=== PATIENT | male | born 1990 | race Caucasian/White ===

== ENCOUNTER 2018-11-29 17:14 | Emergency (ER) | payer SELFPAY ==
--- NOTE | 2018-11-29 18:28 | RAD REPORT ---
EXAM DESCRIPTION: RAD - Hand Right 3 View - 11/29/2018 6:07 pm CLINICAL HISTORY: Persistent pain to the right middle finger following trauma 1 month earlier COMPARISON: None. FINDINGS: No fracture is identified. There is no dislocation or periosteal reaction noted. No forei gn body or other soft tissue abnormality. IMPRESSION: Negative right hand examination.
--- NOTE | 2018-11-29 18:55 | EDPHYS ---
Physician Documentation [facility] Name: Ariel Hart Age: 28 yrs Sex: Male : 1990 Arrival Date: 11/29/2018 Time: 17:17 Bed 23 Private MD: ED Physician Anastacio Shirley HPI: 11/29 18:00 This 28 yrs old Male presents to ER via Ambulatory with complaints of Finger cp Injury. 18:00 The patient or guardian reports pain. cp 18:00 The complaints affect the right middle finger. Context: resulted from a crush injury, cp while moving furniture. Onset: The symptoms/episode began/occurred 1 month(s) ago. Associated signs and symptoms: Pertinent negatives: cyanosis distally, numbness distally. Historical: - Allergies: 17:22 No Known Allergies; hb - Home Meds: 17:22 None [Active]; hb - PMHx: 17:22 None; hb - PSHx: 17:22 Ear Tubes; hb - Immunization history:: Adult Immunizations up to date. - Social history:: Smoking status: Patient uses tobacco products, smokes one-half pack cigarettes per day. - Ebola Screening: : No symptoms or risks identified at this time. ROS: 18:10 MS/extremity: Positive for pain, tenderness, of the right middle finger, Negative for cp decreased range of motion, deformity, paresthesias. 18:10 Constitutional: Negative for poor PO intake. cp 18:10 Cardiovascular: Negative for chest pain. 18:10 Abdomen/GI: Negative for abdominal pain. 18:10 Skin: Negative for rash. 18:10 All other systems are negative. Exam: 18:20 Head/Face: Normocephalic, atraumatic. cp 18:20 Constitutional: The patient appears in no acute distress, alert, awake, non-toxic, well developed, well nourished. 18:20 Musculoskeletal/extremity: Extremities: grossly normal except: noted in the middle cp phalanx of left middle finger: There is no evidence of decreased ROM, deformity, Pulses: Sensation intact. 18:20 Skin: cellulitis, is not appreciated. Vital Signs: 17:22 BP 119 / 79; Pulse 87; Resp 16; Temp 99.1(TE); Pulse Ox 100% ; Weight 68.04 kg; Height hb 5 ft. 5 in. (165.10 cm); Pain 8/10; 18:54 BP 122 / 76; Pulse 84; Resp 16 S; Pulse Ox 100% on R/A; ca1 17:22 Body Mass Index 24.96 (68.04 kg, 165.10 cm) hb MDM: 17:32 Patient medically screened. cp 18:54 Data reviewed: vital signs, nurses notes, radiologic studies, plain films, and as a cp result, I will discharge patient. 18:54 Differential diagnosis: dislocation, open fracture, closed fracture, contusion. Test cp interpretation: by ED physician or midlevel provider: plain radiologic studies. 11/29 17:49 Order name: XRAY Hand RIGHT 3 View; Complete Time: 18:33 cp 11/29 18:33 Interpretation: Report reviewed. cp Administered Medications: No medications were administered Disposition: 19:15 Chart complete. cp Disposition: 11/29/18 18:54 Discharged to Home. Impression: Pain in unspecified finger(s) - right middle. - Condition is Stable. - Discharge Instructions: Musculoskeletal Pain. - Prescriptions for Ibuprofen 800 mg Oral Tablet - take 1 tablet by ORAL route every 8 hours As needed take with food; 30 tablet. - Medication Reconciliation Form, Thank You Letter, Antibiotic Education, Prescription Opioid Use form. - Follow up: Chuy Licea MD; When: 2 - 3 days; Reason: Recheck today's complaints. Addendum: 12/02/2018 09:05 Co-signature as Attending Physician, Anastacio Shirley MD I agree with the assessment and k dr plan of care. PA/FACULTY MEMBER's history reviewed, patient interviewed, and examined. Signatures: Dispatcher [employer] EDMS Anastacio Shirley MD MD [facility] César Page PA PA cp Iris Stokes, RN RN hb Lulu Pringle RN RN ca1 Corrections: (The following items were deleted from the chart) 11/29 18:55 18:54 11/29/2018 18:54 Discharged to Home. Impression: Pain in unspecified finger(s). cp Condition is Stable. Forms are Medication Reconciliation Form, Thank You Letter, Antibiotic Education, Prescription Opioid Use. Follow up: Chuy Licea; When: 2 - 3 days; Reason: Recheck today's complaints. cp 19:04 18:55 11/29/2018 18:54 Discharged to Home. Impression: Pain in unspecified finger(s) - ca1 right middle. Condition is Stable. Discharge Instructions: Musculoskeletal Pain. Prescriptions for Ibuprofen 800 mg Oral Tablet - take 1 tablet by ORAL route every 8 hours As needed take with food; 30 tablet. and Forms are Medication Reconciliation Form, Thank You Letter, Antibiotic Education, Prescription Opioid Use. Follow up: Chuy Licea; When: 2 - 3 days; Reason: Recheck today's complaints. cp
--- NOTE | 2018-11-29 18:55 | ER ---
Nurse's Notes [facility] Name: Ariel Hart Age: 28 yrs Sex: Male : 1990 Arrival Date: 11/29/2018 Time: 17:17 Bed 23 Private MD: Diagnosis: Pain in unspecified finger(s)-right middle Presentation: 11/29 17:21 Presenting complaint: Smashed right hand while moving furniture one month ago, reports hb right middle finger pain is getting worse. Transition of care: patient was not received from another setting of care. Onset of symptoms was November 29, 2018. Risk Assessment: Do you want to hurt yourself or someone else? Patient reports no desire to harm self or others. Initial Sepsis Screen: Does the patient meet any 2 criteria? No. Patient's initial sepsis screen is negative. Does the patient have a suspected source of infection? No. Patient's initial sepsis screen is negative. Care prior to arrival: None. 17:21 Method Of Arrival: Ambulatory 17:21 Acuity: BREN 4 hb Triage Assessment: 19:04 Injury Description:. ca1 Historical: - Allergies: 17:22 No Known Allergies; hb - Home Meds: 17:22 None [Active]; hb - PMHx: 17:22 None; hb - PSHx: 17:22 Ear Tubes; hb - Immunization history:: Adult Immunizations up to date. - Social history:: Smoking status: Patient uses tobacco products, smokes one-half pack cigarettes per day. - Ebola Screening: : No symptoms or risks identified at this time. Screenin:29 Abuse screen: Denies threats or abuse. Denies injuries from another. Nutritional ca1 screening: No deficits noted. Tuberculosis screening: No symptoms or risk factors identified. Fall Risk None identified. Assessment: 17:29 General: Appears in no apparent distress. comfortable, Behavior is calm, cooperative, ca1 appropriate for age. Pain: Complains of pain in dorsal aspect of middle phalanx of right middle finger and dorsal aspect of proximal phalanx of right middle finger Pain does not radiate. Pain currently is 8 out of 10 on a pain scale. Pain began a month ago. Neuro: Level of Consciousness is awake, alert, obeys commands. Derm: Skin is intact, is healthy with good turgor, Skin is pink, warm \T\ dry. Musculoskeletal: Circulation, motion, and sensation intact. Capillary refill < 3 seconds, Range of motion: limited in PIP of right middle finger. 18:54 Reassessment: Patient appears in no apparent distress at this time. Patient and/or ca1 family updated on plan of care and expected duration. Pain level reassessed. Patient is alert, oriented x 3, equal unlabored respirations, skin warm/dry/pink. Vital Signs: 17:22 BP 119 / 79; Pulse 87; Resp 16; Temp 99.1(TE); Pulse Ox 100% ; Weight 68.04 kg; Height hb 5 ft. 5 in. (165.10 cm); Pain 8/10; 18:54 BP 122 / 76; Pulse 84; Resp 16 S; Pulse Ox 100% on R/A; ca1 17:22 Body Mass Index 24.96 (68.04 kg, 165.10 cm) hb ED Course: 17:17 Patient arrived in ED. as 17:22 Triage completed. hb 17:22 Arm band placed on. hb 17:23 César Page PA is PHCP. cp 17:23 Anastaico Shirley MD is Attending Physician. cp 17:27 Lulu Pringle RN is Primary Nurse. ca1 17:29 Patient has correct armband on for positive identification. Bed in low position. Call ca1 light in reach. Side rails up X 1. 17:29 Pulse ox on. NIBP on. ca1 17:29 No provider procedures requiring assistance completed. Patient did not have IV access ca1 during this emergency room visit. 18:06 X-ray completed. Portable x-ray completed in exam room. Patient tolerated procedure ls3 well. 18:08 XRAY Hand RIGHT 3 View In Process Unspecified. EDMS 18:54 Chuy Licea MD is Referral Physician. cp Administered Medications: No medications were administered Outcome: 18:54 Discharge ordered by . cp 19:04 Discharged to home ambulatory, with significant other. ca1 19:04 Condition: stable 19:04 Discharge instructions given to patient, Instructed on discharge instructions, follow up and referral plans. medication usage, Demonstrated understanding of instructions, follow-up care, medications, Prescriptions given X 1. 19:04 Patient left the ED. ca1 Signatures: Dispatcher [employer] EDKS Apryl Singh as César Page PA PA cp Baxter, Heather, RN RN hb William Baldwin ls3 AcLulu diego, RN RN ca1
[2018-11-29 19:21] VITALS: TEMP 99.1; O2SAT 100
[2018-11-29 19:22] VITALS: BP 122/76
== END 2018-11-29 19:04 | disposition home or self-care (01) ==
LOC: ER 17:14
DX: M79.644 Pain in right finger(s) (principal); F17.210 Nicotine dependence, cigarettes, uncomplicated
CPT/HCPCS: 99283

== ENCOUNTER 2019-10-03 15:48 | Emergency (ER) | payer SELFPAY ==
[2019-10-03 16:22] LABS: Absolute Lymphocytes (CBC) 1.9 K/uL (0.7-4.9); Basophils % 0.9 % (0-1.3); Hematocrit 45.2 % (39.6-49.0); Lymphocytes % 20.6 % (15.3-44.8); MPV 8.3 fL (7.6-11.3); RBC Red Blood Cell Count 4.78 M/uL (4.33-5.43)
[2019-10-03 16:41] LABS: BUN Blood Urea Nitrogen 9 mg/dL (7-18); Bicarbonate 24 mmol/L (21-32); Glucose Level 91 mg/dL (74-106); Potassium 3.8 mmol/L (3.5-5.1); Sodium Level 139 mmol/L (136-145); Troponin (Emerg Dept Use Only) < 0.02 ng/mL (0.0-0.045)
[2019-10-03] MEDS ORDERED: NA CHLORIDE 0.9% 1,000 ML ONE (16:53)
--- NOTE | 2019-10-03 17:19 | EDPHYS ---
Physician Documentation [facility] Name: Ariel Hart Age: 29 yrs Sex: Male : 1990 Arrival Date: 10/03/2019 Time: 15:51 Bed 2 Private MD: None, None ED Physician Ozzie Arechiga HPI: 10/02 17:06 This 29 yrs old Male presents to ER via Ambulatory with complaints of Chest kb Pain. 17:06 The patient or guardian reports chest pain that is located primarily in the anterior kb chest wall, left. The pain radiates to the left arm. Associated signs and symptoms: Pertinent positives: shortness of breath, Pertinent negatives: abdominal pain, cough, diaphoresis, dizziness, headache, lower extremity pain, lower extremity swelling, lightheadedness, nausea, near syncope, palpitations, recent travel, syncope, vomiting. The chest pain is described as dull. Duration: The patient or guardian reports a single episode, that is still ongoing. Modifying factors: The symptoms are alleviated by nothing. the symptoms are aggravated by deep breath, movement, palpation of area. Severity of pain: At its worst the pain was mild moderate in the emergency department the pain is unchanged. The patient has experienced a previous episode. The patient has not recently seen a physician. Pt reports left upper chest pain since 829. States pain sometimes radiates down left arm as well. States he is always short of breath because he "smokes too many cigarettes" and is not any more short of breath now. States he has had this pain once before and it was due to a pulled muscle. States he has mild pain constantly that is worsened by movement and deep breathing. Historical: - Allergies: 15:57 No Known Allergies; ll1 - PMHx: 15:57 mitral valve prolapse; ll1 - Immunization history:: Flu vaccine is not up to date. . - Social history:: Smoking status: Patient reports the use of cigarette tobacco products, smokes two packs cigarettes per day. Patient uses alcohol, only on a social basis. Patient/guardian denies using street drugs. ROS: 17:05 Constitutional: Negative for fever, chills, and weight loss, Neck: Negative for injury, kb pain, and swelling, Abdomen/GI: Negative for abdominal pain, nausea, vomiting, diarrhea, and constipation, Back: Negative for injury and pain, MS/Extremity: Negative for injury and deformity, Skin: Negative for injury, rash, and discoloration, Neuro: Negative for headache, weakness, numbness, tingling, and seizure. 17:05 Cardiovascular: Positive for chest pain, with cough, with movement, of the anterior aspect of left upper chest, Negative for edema, orthopnea, palpitations, paroxysmal nocturnal dyspnea. 17:05 Respiratory: Positive for shortness of breath, Negative for cough, dyspnea on exertion, hemoptysis, orthopnea, pleurisy, sputum production, wheezing. Exam: 17:05 Constitutional: This is a well developed, well nourished patient who is awake, alert, kb and in no acute distress. Head/Face: Normocephalic, atraumatic. ENT: Nares patent. No nasal discharge, no septal abnormalities noted. Tympanic membranes are normal and external auditory canals are clear. Oropharynx with no redness, swelling, or masses, exudates, or evidence of obstruction, uvula midline. Mucous membranes moist. Neck: Trachea midline, no thyromegaly or masses palpated, and no cervical lymphadenopathy. Supple, full range of motion without nuchal rigidity, or vertebral point tenderness. No Meningismus. Cardiovascular: Regular rate and rhythm with a normal S1 and S2. No gallops, murmurs, or rubs. Normal PMI, no JVD. No pulse deficits. Respiratory: Lungs have equal breath sounds bilaterally, clear to auscultation and percussion. No rales, rhonchi or wheezes noted. No increased work of breathing, no retractions or nasal flaring. Abdomen/GI: Soft, non-tender, with normal bowel sounds. No distension or tympany. No guarding or rebound. No evidence of tenderness throughout. Back: No spinal tenderness. No costovertebral tenderness. Full range of motion. Skin: Warm, dry with normal turgor. Normal color with no rashes, no lesions, and no evidence of cellulitis. MS/ Extremity: Pulses equal, no cyanosis. Neurovascular intact. Full, normal range of motion. Neuro: Awake and alert, GCS 15, oriented to person, place, time, and situation. Cranial nerves II-XII grossly intact. Motor strength 5/5 in all extremities. Sensory grossly intact. Cerebellar exam normal. Normal gait. 17:05 Chest/axilla: Inspection: normal, Palpation: tenderness, that is moderate, of the anterior aspect of left upper chest, that totally reproduces the patient's complaints. Vital Signs: 15:54 BP 122 / 76; Pulse 89; Resp 17; Temp 98.2; Pulse Ox 97% ; Pain 8/10; ll1 16:54 BP 103 / 74; Pulse 62; Resp 16 S; Pulse Ox 100% on R/A; iw MDM: 15:58 Patient medically screened. kb 17:05 Data reviewed: vital signs, nurses notes. Data interpreted: Pulse oximetry: on room air kb is 100 %. Interpretation: normal. Counseling: I had a detailed discussion with the patient and/or guardian regarding: the historical points, exam findings, and any diagnostic results supporting the discharge/admit diagnosis, lab results, radiology results, the need for outpatient follow up, a family practitioner, to return to the emergency department if symptoms worsen or persist or if there are any questions or concerns that arise at home. 10/02 16:03 Order name: Troponin (emerg Dept Use Only); Complete Time: 16:42 kb 10/02 16:03 Order name: Basic Metabolic Panel; Complete Time: 16:42 kb 10/02 16:03 Order name: CBC with Diff; Complete Time: 16:57 kb 10/02 16:03 Order name: D-Dimer; Complete Time: 16:42 kb 10/02 17:29 Order name: Chest Single View; Complete Time: 18:45 EDMS 10/02 16:03 Order name: EKG; Complete Time: 16:03 kb 10/02 16:03 Order name: Cardiac monitoring; Complete Time: 16:33 kb 10/02 16:03 Order name: EKG - Nurse/Tech; Complete Time: 16:21 kb 10/02 16:03 Order name: IV Saline Lock; Complete Time: 16:21 kb 10/02 16:03 Order name: Labs collected and sent; Complete Time: 16:21 kb 10/02 16:03 Order name: O2 Per Protocol; Complete Time: 16:21 kb 10/02 16:03 Order name: O2 Sat Monitoring; Complete Time: 16:21 kb Administered Medications: 16:53 Drug: NS 0.9% 1000 ml Route: IV; Rate: 1000 ml; Site: left antecubital; iw 17:26 Drug: TORadol - Ketorolac 15 mg Route: IVP; Site: left antecubital; iw Disposition: 10/03 07:07 Co-signature as Attending Physician, Ozzie Arechiga MD. rn Disposition: 10/03/19 17:18 Discharged to Home. Impression: Chest pain, unspecified - chest wall pain. - Condition is Stable. - Discharge Instructions: Chest Wall Pain, [id number]. - Medication Reconciliation Form, Thank You Letter, Antibiotic Education, Prescription Opioid Use, Work release form form. - Follow up: Emergency Department; When: As needed; Reason: Worsening of condition. Follow up: Private Physician; When: 2 - 3 days; Reason: Recheck today's complaints, Continuance of care, Re-evaluation by your physician. Signatures: Dispatcher [employer] [facility] Leora Akhtar, FUNMILAYO-C MORTAR MIXER-Matilda Connelly, RN RN Ozzie Gupta MD MD rn Lewis, Lynsay, RN RN ll1 Corrections: (The following items were deleted from the chart) 10/02 16:54 16:03 Chest Single View+RAD.RAD.BRZ ordered. [facility] 17:53 17:18 10/03/2019 17:18 Discharged to Home. Impression: Chest pain, unspecified - chest iw wall pain. Condition is Stable. Forms are Medication Reconciliation Form, Thank You Letter, Antibiotic Education, Prescription Opioid Use. Follow up: Emergency Department; When: As needed; Reason: Worsening of condition. Follow up: Private Physician; When: 2 - 3 days; Reason: Recheck today's complaints, Continuance of care, Re-evaluation by your physician. kb
--- NOTE | 2019-10-03 17:19 | ER ---
Nurse's Notes [facility] Name: Ariel Hart Age: 29 yrs Sex: Male : 1990 Arrival Date: 10/03/2019 Time: 15:51 Bed 2 Private MD: None, None Diagnosis: Chest pain, unspecified-chest wall pain Presentation: 10/02 15:54 Chief complaint: Patient states: Left sided CP with SOB since 829. Sent home from [facility] work. Coronavirus screen: Proceed with normal triage. Patient denies a cough. Patient denies shortness of breath or difficulty breathing. Patient denies measured and/or subjective temperature greater than 100.4F prior to today's visit. Patient denies travel on a cruise ship or to a country the [facility] currently lists as an affected area. "smokers cough". Ebola Screen: Patient denies travel to an Ebola-affected area in the 21 days before illness onset. Initial Sepsis Screen: Does the patient meet any 2 criteria? No. Patient's initial sepsis screen is negative. Does the patient have a suspected source of infection? No. Patient's initial sepsis screen is negative. Risk Assessment: Do you want to hurt yourself or someone else? Patient reports no desire to harm self or others. Onset of symptoms was October 03, 2019. 15:54 Method Of Arrival: Ambulatory [facility] 15:54 Acuity: BREN 3 ll1 Historical: - Allergies: 15:57 No Known Allergies; ll1 - PMHx: 15:57 mitral valve prolapse; ll1 - Immunization history:: Flu vaccine is not up to date. . - Social history:: Smoking status: Patient reports the use of cigarette tobacco products, smokes two packs cigarettes per day. Patient uses alcohol, only on a social basis. Patient/guardian denies using street drugs. Screenin:22 Abuse screen: Denies threats or abuse. Denies injuries from another. Nutritional iw screening: No deficits noted. Tuberculosis screening: No symptoms or risk factors identified. Fall Risk None identified. IV access (20 points). Assessment: 16:21 General: Appears in no apparent distress. Behavior is calm, cooperative. Pain: iw Complains of pain in anterior aspect of left upper chest Pain does not radiate. Pain currently is 7 out of 10 on a pain scale. Pain began this morning. Neuro: Level of Consciousness is awake, alert, obeys commands, Oriented to person, place, time, situation, Moves all extremities. Full function. Cardiovascular: Heart tones S1 S2 present Capillary refill < 3 seconds in bilateral fingers Patient's skin is warm and dry. Rhythm is regular. Respiratory: Respiratory effort is even, unlabored, Respiratory pattern is regular, symmetrical. GI: Abdomen is flat, non-distended. Derm: Skin is intact, is healthy with good turgor. Musculoskeletal: Range of motion: intact in all extremities. 17:08 Reassessment: Patient appears in no apparent distress at this time. Patient and/or iw family updated on plan of care and expected duration. Pain level reassessed. Patient is alert, oriented x 3, equal unlabored respirations, skin warm/dry/pink. Vital Signs: 15:54 BP 122 / 76; Pulse 89; Resp 17; Temp 98.2; Pulse Ox 97% ; Pain 8/10; ll1 16:54 BP 103 / 74; Pulse 62; Resp 16 S; Pulse Ox 100% on R/A; iw ED Course: 15:51 Patient arrived in ED. mr 15:51 None, None is Private Physician. mr 15:56 Triage completed. ll1 15:57 Arm band placed on Patient placed in an exam room, on a stretcher. ll1 15:58 Leora kAhtar FNP-C is [facility]. kb 15:58 Ozzie Arechiga MD is Attending Physician. kb 16:08 Matilda Murphy, RN is Primary Nurse. iw 16:18 Initial lab(s) drawn, by ut, sent to lab. Inserted saline lock: 20 gauge in left iw antecubital area, using aseptic technique. Blood collected. Patient maintains SpO2 saturation greater than 95% on room air. 16:22 EKG done, by ED staff, reviewed by Leora HUYNH. dh3 16:30 Patient has correct armband on for positive identification. monitoring tech on. iw 17:35 Chest Single View In Process Unspecified. EDMS 17:52 No provider procedures requiring assistance completed. IV discontinued, intact, iw bleeding controlled, No redness/swelling at site. Pressure dressing applied. Administered Medications: 16:53 Drug: NS 0.9% 1000 ml Route: IV; Rate: 1000 ml; Site: left antecubital; iw 17:26 Drug: TORadol - Ketorolac 15 mg Route: IVP; Site: left antecubital; iw Outcome: 17:18 Discharge ordered by MD. nolen 17:52 Discharged to home ambulatory. iw 17:52 Condition: good 17:52 Discharge instructions given to patient, Instructed on discharge instructions, follow up and referral plans. Demonstrated understanding of instructions, follow-up care. 17:53 Patient left the ED. iw Signatures: Dispatcher [employer] EDMS Leora Akhtar, FUNMILAYO-C FUNMILAYO-Aga Robertson Irene, RN RN Eliza Olivo 3 Sai Benjamin RN RN ll1
[2019-10-03] MEDS ORDERED: KETOROLAC 30 MG/ML INJ ONE (17:31)
--- NOTE | 2019-10-03 17:48 | RAD REPORT ---
EXAM DESCRIPTION: [place] Single View10/03/2019 5:35 pm CLINICAL HISTORY: Chest pain COMPARISON: 2012 FINDINGS: The lungs appear clear of acute infiltrate. The heart is normal size IMPRESSION: No acute abnormalities displayed
[2019-10-03 18:04] VITALS: TEMP 98.2
[2019-10-03 18:06] VITALS: BP 103/74; O2SAT 100
--- NOTE | 2019-10-04 07:52 | EKG ---
Test Date: 2019-10-03 Test Time: 16:22:29 Inkjet Operator: SHUKRI MEASUREMENT RESULTS: Intervals: Rate: 67 WY: 148 QRSD: 80 QT: 364 QTc: 384 [place]: P: 55 WY: 148 QRS: 25 T: 27 INTERPRETIVE STATEMENTS: Normal sinus rhythm with sinus arrhythmia Normal ECG Compared to ECG 09/04/2012 07:07:09 Sinus bradycardia no longer present Atrial premature complex(es) no longer present Electronically Signed On 10-04-19 07:51:41 CDT by Claude Mac
== END 2019-10-03 17:53 | disposition home or self-care (01) ==
LOC: ER 15:48
DX: R07.9 Chest pain, unspecified (principal); F17.210 Nicotine dependence, cigarettes, uncomplicated
CPT/HCPCS: 36415; 71045; 80048; 84484; 85025; 85379; 93005; 96374; 99285; J7030

== ENCOUNTER 2019-11-27 15:44 | Emergency (ER) | payer SELFPAY ==
[2019-11-27] MEDS ORDERED: HYDROCODONE/APAP 7.5/325 MG TAB ONE (18:02)
[2019-11-27] MEDS ORDERED: TETANUS & DIPHTHERIA TOX,ADULT 0.5 ML VIAL ONE (18:03)
--- NOTE | 2019-11-27 18:04 | RAD REPORT ---
EXAM DESCRIPTION: RAD - Ankle Right 3 View - 11/27/2019 5:56 pm CLINICAL HISTORY: Pain;Smash injury COMPARISON: No comparisons FINDINGS: No acute fractures seen. Tiny plantar calcaneal spur.
--- NOTE | 2019-11-27 19:01 | EDPHYS ---
Physician Documentation [facility] Name: Ariel Hart Age: 29 yrs Sex: Male : 1990 Arrival Date: 11/27/2019 Time: 15:45 Bed 3 Private MD: ED Physician Anastacio Shirley HPI: 11/26 17:40 This 29 yrs old Male presents to ER via Wheelchair with complaints of Fall snw Injury, Laceration To Hand, Ankle Injury. 17:40 Details of fall: The patient fell from a height, from a ladder, but was slowed somewhat snw by hitting ladder rungs, and struck a concrete surface, a metal surface. Onset: The symptoms/episode began/occurred suddenly, just prior to arrival. Associated injuries: The patient sustained right ankle, decreased range of motion, painful injury, swelling. Severity of symptoms: At their worst the symptoms were mild, no LOC. The patient has not experienced similar symptoms in the past. The patient has not recently seen a physician. no LOC. Historical: - Allergies: 16:12 No Known Allergies; iw - Home Meds: 16:12 None [Active]; iw - PMHx: 16:12 mitral valve prolapse; iw - PSHx: 16:12 Ear Tubes; iw - Immunization history: Last tetanus immunization:. - Social history:: Smoking status: unknown. ROS: 17:37 Constitutional: Negative for fever, chills, and weight loss, Eyes: Negative for injury, snw pain, redness, and discharge, ENT: Negative for injury, pain, and discharge, Neck: Negative for injury, pain, and swelling, Cardiovascular: Negative for chest pain, palpitations, and edema, Respiratory: Negative for shortness of breath, cough, wheezing, and pleuritic chest pain, Abdomen/GI: Negative for abdominal pain, nausea, vomiting, diarrhea, and constipation, Back: Negative for injury and pain, : Negative for injury, bleeding, discharge, and swelling, Neuro: Negative for headache, weakness, numbness, tingling, and seizure, Psych: Negative for depression, anxiety, suicide ideation, homicidal ideation, and hallucinations. 17:37 MS/extremity: Positive for injury or acute deformity, decreased range of motion, pain, of the right ankle. 17:37 Skin: Positive for abrasion(s), laceration(s), of the left hand. Exam: 17:37 Constitutional: This is a well developed, well nourished patient who is awake, alert, snw and in no acute distress. Head/Face: Normocephalic, atraumatic. Eyes: Pupils equal round and reactive to light, extra-ocular motions intact. Lids and lashes normal. Conjunctiva and sclera are non-icteric and not injected. Cornea within normal limits. Periorbital areas with no swelling, redness, or edema. ENT: Nares patent. No nasal discharge, no septal abnormalities noted. Tympanic membranes are normal and external auditory canals are clear. Oropharynx with no redness, swelling, or masses, exudates, or evidence of obstruction, uvula midline. Mucous membranes moist. Neck: Trachea midline, no thyromegaly or masses palpated, and no cervical lymphadenopathy. Supple, full range of motion without nuchal rigidity, or vertebral point tenderness. No Meningismus. Chest/axilla: Normal chest wall appearance and motion. Nontender with no deformity. No lesions are appreciated. Cardiovascular: Regular rate and rhythm with a normal S1 and S2. No gallops, murmurs, or rubs. Normal PMI, no JVD. No pulse deficits. Respiratory: Lungs have equal breath sounds bilaterally, clear to auscultation and percussion. No rales, rhonchi or wheezes noted. No increased work of breathing, no retractions or nasal flaring. Abdomen/GI: Soft, non-tender, with normal bowel sounds. No distension or tympany. No guarding or rebound. No evidence of tenderness throughout. Back: No spinal tenderness. No costovertebral tenderness. Full range of motion. Neuro: Awake and alert, GCS 15, oriented to person, place, time, and situation. Cranial nerves II-XII grossly intact. Motor strength 5/5 in all extremities. Sensory grossly intact. Cerebellar exam normal. Normal gait. Psych: Awake, alert, with orientation to person, place and time. Behavior, mood, and affect are within normal limits. 17:37 Musculoskeletal/extremity: Extremities: grossly normal except: noted in the right ankle: decreased ROM, swelling, tenderness. 17:37 Skin: Appearance: normal except for affected area, injury, abrasion(s), moderate sized abrasion noted, of the left thumb web. Vital Signs: 16:13 BP 110 / 80; Pulse 82; Resp 16; Temp 98.0; Pulse Ox 99% on R/A; Weight 66.68 kg; Height iw 5 ft. 5 in. (165.10 cm); Pain 10/10; 16:21 BP 99 / 77; Pulse 80; Resp 18; Pulse Ox 97% ; Pain 9/10; ks7 18:13 BP 119 / 75; Pulse 79; Resp 18; Pulse Ox 97% on R/A; Pain 7/10; ks7 18:14 Pulse Ox 97% on R/A; Pain 7/10; ks7 18:58 BP 126 / 68; Pulse 76; Resp 18; Pulse Ox 98% on R/A; ks7 20:06 BP 123 / 93; Pulse 77; Resp 17 S; Pulse Ox 98% on R/A; jd3 16:13 Body Mass Index 24.46 (66.68 kg, 165.10 cm) iw MDM: 16:51 Patient medically screened. snw 17:39 Data reviewed: vital signs, nurses notes. Data interpreted: Pulse oximetry: on room air snw is 97 %. Interpretation: normal. Counseling: I had a detailed discussion with the patient and/or guardian regarding: the historical points, exam findings, and any diagnostic results supporting the discharge/admit diagnosis. 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 Exp: ks7 06/19/2022. Lot #: [id number]. } Route: IM; Site: right deltoid; 19:00 Follow up: Response: No adverse reaction jd3 17:59 Drug: [place] (7.5 mg-325 mg) 1 tabs Route: PO; ks7 18:14 Follow up: Pulse Ox 97% RA; Pain 11/06 Adult ks7 19:37 Drug: TORadol 30 mg Route: IM; Site: left deltoid; jd3 20:06 Follow up: Response: No adverse reaction jd3 Disposition: 11/27 11:37 Co-signature as Attending Physician, Anastacio Shirley MD I agree with the assessment and kdr plan of care. Disposition: 11/27/19 19:00 Discharged to Home. Impression: Fall on and from ladder, Dislocation and sprain of joints and ligaments at ankle, foot and toe level. - Condition is Stable. - Discharge Instructions: Abrasion, Fall Prevention in the Home, Laceration Care, Adult, VIS, Tetanus, Diphtheria (Td) - CDC. - Prescriptions for Ultram 50 mg Oral Tablet - take 1 tablet by ORAL route every 6 hours As needed; 12 tablet. - Medication Reconciliation Form, Thank You Letter, Antibiotic Education, Prescription Opioid Use form. - Follow up: Emergency Department; When: As needed; Reason: Worsening of condition. Follow up: Private Physician; When: 2 - 3 days; Reason: Recheck today's complaints, Continuance of care, Re-evaluation by your physician. Signatures: Dispatcher [employer] EDMS Anastacio Shirley MD MD kdr Waters, Shelly, TEA BAG PACKER-C TEA BAG PACKER-Csnw Matilda Murphy, RN Boom Roblero RN RN jConchita Reardon RN RN ks7 Corrections: (The following items were deleted from the chart) 11/26 20:06 19:00 11/27/2019 19:00 Discharged to Home. Impression: Fall on and from ladder; jd3 Dislocation and sprain of joints and ligaments at ankle, foot and toe level. Condition is Stable. Forms are Medication Reconciliation Form, Thank You Letter, Antibiotic Education, Prescription Opioid Use. Follow up: Emergency Department; When: As needed; Reason: Worsening of condition. Follow up: Private Physician; When: 2 - 3 days; Reason: Recheck today's complaints, Continuance of care, Re-evaluation by your physician. snw
--- NOTE | 2019-11-27 19:01 | ER ---
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 Care prior to arrival: None. Mechanism of Injury: Fall from ladder. Trauma event details: Injury occurred in the [facility]. 16:10 Acuity: BREN 3 iw 16:10 Method Of Arrival: Wheelchair iw 16:13 Coronavirus screen: Patient denies a cough. Patient denies shortness of breath or iw difficulty breathing. Patient denies measured and/or subjective temperature greater than 100.4F prior to today's visit. Patient denies travel on a cruise ship or to a country the [facility] currently lists as an affected area. Patient denies contact with known and/or suspected case of COVID-19. Ebola Screen: Patient negative for fever greater than or equal to 101.5 degrees Fahrenheit, and additional compatible Ebola Virus Disease symptoms Patient denies exposure to infectious person. Patient denies travel to an Ebola-affected area in the 21 days before illness onset. No symptoms or risks identified at this time. Initial Sepsis Screen: Does the patient meet any 2 criteria? No. Patient's initial sepsis screen is negative. Does the patient have a suspected source of infection? No. Patient's initial sepsis screen is negative. Risk Assessment: Do you want to hurt yourself or someone else? Patient reports no desire to harm self or others. Onset of symptoms was November 27, 2019. Triage Assessment: 16:21 General: Appears uncomfortable, Behavior is cooperative. Pain: Complains of pain in ks7 right foot and right ankle Pain currently is 9 out of 10 on a pain scale. Quality of pain is described as sharp, Pain began 30 min ago. Neuro: No deficits noted. Musculoskeletal: Capillary refill < 3 seconds, in right toes. Range of motion: limited in right ankle Swelling present in right foot and right leg Tenderness present in right foot and right ankle Reports. Injury Description: Fall from ladder, pt fell onto R foot, pain and limited ROM to R foot and ankle. pt also has abrasion on L hand. denies LOC, denies pain to head neck or upper extremities. Historical: - Allergies: 16:12 No Known Allergies; iw - Home Meds: 16:12 None [Active]; iw - PMHx: 16:12 mitral valve prolapse; iw - PSHx: 16:12 Ear Tubes; iw - Immunization history: Last tetanus immunization:. - Social history:: Smoking status: unknown. Screenin:24 Abuse screen: Denies threats or abuse. Denies injuries from another. Nutritional ks7 screening: No deficits noted. Tuberculosis screening: No symptoms or risk factors identified. Fall Risk None identified. Assessment: 16:19 General: Appears uncomfortable, Behavior is cooperative. Pain: Complains of pain in ks7 right foot, R ankle Pain currently is 9 out of 10 on a pain scale. Quality of pain is described as sharp, Pain began 30 min ago. Neuro: No deficits noted. Musculoskeletal: Capillary refill < 3 seconds, in right toes. 18:12 Reassessment: pt states he can't move his toes. cap refill < 3 sec. 2+ dorsalis pedis ks7 pulse on R foot. 20:04 Reassessment: Patient appears in no apparent distress at this time. Patient and/or jd3 family updated on plan of care and expected duration. Pain level reassessed. Patient is alert, oriented x 3, equal unlabored respirations, skin warm/dry/pink. pt reported understanding of discharge. Patient states feeling better. Vital Signs: 16:13 BP 110 / 80; Pulse 82; Resp 16; Temp 98.0; Pulse Ox 99% on R/A; Weight 66.68 kg; Height iw 5 ft. 5 in. (165.10 cm); Pain 10/10; 16:21 BP 99 / 77; Pulse 80; Resp 18; Pulse Ox 97% ; Pain 9/10; ks7 18:13 BP 119 / 75; Pulse 79; Resp 18; Pulse Ox 97% on R/A; Pain 7/10; ks7 18:14 Pulse Ox 97% on R/A; Pain 7/10; ks7 18:58 BP 126 / 68; Pulse 76; Resp 18; Pulse Ox 98% on R/A; ks7 20:06 BP 123 / 93; Pulse 77; Resp 17 S; Pulse Ox 98% on R/A; jd3 16:13 Body Mass Index 24.46 (66.68 kg, 165.10 cm) iw ED Course: 15:45 Patient arrived in ED. as 16:12 Triage completed. iw 16:17 Conchita Silva, RN is Primary Nurse. ks7 16:21 Arm band placed on left wrist. ks7 16:24 Resting quietly. ks7 16:24 Patient has correct armband on for positive identification. Bed in low position. Call ks7 light in reach. Side rails up X2. 16:24 No provider procedures requiring assistance completed. ks7 16:45 Carie Galindo FNP-C is PHCP. snw 16:45 Anastacio Shirley MD is Attending Physician. snw 16:46 elevated R ankle and ice pack. ks7 17:56 Ankle Right 3 View XRAY In Process Unspecified. EDMS 18:11 Resting quietly. ks7 18:11 Wound care: to laceration located on left hand was cleaned with with sterile saline, ks7 chlorhex, irrigated with normal saline, dressed with Neosporin, band aid, Patient tolerated well. 18:39 portable xray of R foot. ks7 19:09 Foot Right 3 View XRAY In Process Unspecified. EDMS 19:24 Orthoglass splint: Posterior short lleg splint applied on right leg. ds4 20:05 Patient did not have IV access during this emergency room visit. 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 Exp: ks7 06/19/2022. Lot #: [id number]. } Route: IM; Site: right deltoid; 19:00 Follow up: Response: No adverse reaction jd3 17:59 Drug: [place] (7.5 mg-325 mg) 1 tabs Route: PO; ks7 18:14 Follow up: Pulse Ox 97% RA; Pain 7/10 Adult ks7 19:37 Drug: TORadol 30 mg Route: IM; Site: left deltoid; jd3 20:06 Follow up: Response: No adverse reaction jd3 Outcome: 19:00 Discharge ordered by . haley 20:05 Discharged to home ambulatory, with crutches, with family. jd3 20:05 Condition: stable 20:05 Discharge instructions given to patient, Instructed on discharge instructions, follow up and referral plans. medication usage, Demonstrated understanding of instructions, follow-up care, medications, Prescriptions given X 1. 20:06 Patient left the ED. jd3 Signatures: Dispatcher [employer] EDMS Carie Galindo, PROGRAM DIRECTOR/MUSIC DIRECTOR-C PROGRAM DIRECTOR/MUSIC DIRECTOR-Csnw Apryl Singh Irene, RN RN Juan Brizuela ds4 Boom Carrillo RN RN jd3 Conchita Silva RN RN ks7
[2019-11-27] MEDS ORDERED: KETOROLAC 30 MG/ML INJ ONE (19:41)
--- NOTE | 2019-11-27 19:41 | RAD REPORT ---
EXAM DESCRIPTION: RAD - Foot Right 3 View - 11/27/2019 7:09 pm CLINICAL HISTORY: Pain;Swelling COMPARISON: No comparisons FINDINGS: No fracture or dislocation seen. Small plantar calcaneal spur.
[2019-11-27 20:23] VITALS: TEMP 98
[2019-11-27 20:28] VITALS: O2SAT 98
[2019-11-27 20:30] VITALS: BP 123/93
== END 2019-11-27 20:06 | disposition home or self-care (01) ==
LOC: ER 15:44
DX: S93.01XA Subluxation of right ankle joint, initial encounter (principal); W11.XXXA Fall on and from ladder, initial encounter; Y93.9 Activity, unspecified; Y92.9 Unspecified place or not applicable; Z23 Encounter for immunization
CPT/HCPCS: 90471; 90714; 96372; 99284

== ENCOUNTER 2020-05-23 20:36 | Emergency (ER) | payer OTHER, SELFPAY ==
[2020-05-23] MEDS ORDERED: KETOROLAC 30 MG/ML INJ ONE (23:36)
[2020-05-23] MEDS ORDERED: ONDANSETRON 4 MG (ODT) TAB ONE (23:37)
--- NOTE | 2020-05-24 00:43 | ER ---
Nurse's Notes [facility] Name: Ariel Hart Age: 29 yrs Sex: Male : 1990 Arrival Date: 05/23/2020 Time: 20:42 Bed 20 Private MD: Diagnosis: Unspecified injury of head;Concussion without loss of consciousness Presentation: 05/23 20:53 Chief complaint: Patient states: Last week, I tripped over my dog and fell. Hit back of ca1 my head on the hardwood floor. Ever since then, my head has been hurting all day. Took Tylenol, ASA, NSAIDs, no relief. Now the pain shoots to the back of neck, down the center and the R side. Denies LOC. Reports nausea. Coronavirus screen: Client denies travel out of the [place] in the last 14 days. headache, nausea, Client presents with at least one sign or symptom that may indicate coronavirus-19. Standard/surgical mask placed on the client. Provider contacted for isolation considerations. Ebola Screen: Patient negative for fever greater than or equal to 101.5 degrees Fahrenheit, and additional compatible Ebola Virus Disease symptoms Patient denies exposure to infectious person. Patient denies travel to an Ebola-affected area in the 21 days before illness onset. No symptoms or risks identified at this time. Initial Sepsis Screen: Does the patient meet any 2 criteria? No. Patient's initial sepsis screen is negative. Does the patient have a suspected source of infection? No. Patient's initial sepsis screen is negative. Risk Assessment: Do you want to hurt yourself or someone else? Patient reports no desire to harm self or others. Onset of symptoms was May 23, 2020. 20:53 Method Of Arrival: Ambulatory ca1 20:53 Acuity: BREN 4 ca1 Historical: - Allergies: 20:57 No Known Allergies; ca1 - Home Meds: 20:57 None [Active]; ca1 - PMHx: 20:57 mitral valve prolapse; ca1 - PSHx: 20:57 Ear Tubes; ca1 - Immunization history:: Flu vaccine is not up to date. - Social history:: Smoking status: Patient reports the use of cigarette tobacco products, smokes one-half pack cigarettes per day. Screenin:15 Abuse screen: Denies threats or abuse. Nutritional screening: No deficits noted. lp1 Tuberculosis screening: No symptoms or risk factors identified. Fall Risk None identified. Assessment: 23:14 General: Appears uncomfortable, Behavior is appropriate for age. Pain: Complains of lp1 pain in scalp. Neuro: Level of Consciousness is awake, alert, obeys commands, Oriented to person, place, time, situation, Reports headache. Respiratory: Airway is patent Respiratory effort is even, unlabored, Respiratory pattern is regular, symmetrical. Derm: Skin is pink, warm \T\ dry. 05/24 00:50 Reassessment: Patient and/or family updated on plan of care and expected duration. Pain ea level reassessed. Patient is alert, oriented x 3, equal unlabored respirations, skin warm/dry/pink. Discharge instruction given to patient verbalized the understanding of instruction. Pt left ED ambulatory tolerating well. Pt left ED ambulatory tolerating well. Vital Signs: 05/23 20:53 BP 112 / 71; Pulse 78; Resp 16 S; Temp 97.7(TE); Pulse Ox 100% on R/A; Weight 72.57 kg ca1 (R); Height 5 ft. 5 in. (165.10 cm) (R); Pain 9/10; 20:53 Body Mass Index 26.63 (72.57 kg, 165.10 cm) ca1 ED Course: 20:42 Patient arrived in ED. am2 20:56 Triage completed. ca1 20:57 Arm band placed on right wrist. ca1 22:51 Angel Guzman NP is PHCP. pm1 22:51 Damien Grossman MD is Attending Physician. pm1 23:06 Cristin Bo, VERITO is Primary Nurse. lp1 23:15 Patient has correct armband on for positive identification. Bed in low position. Call lp1 light in reach. Side rails up X 1. property assessment monitor on. Pulse ox on. 23:52 CT Head C Spine In Process Unspecified. EDMS 05/24 00:52 No provider procedures requiring assistance completed. Patient did not have IV access ea during this emergency room visit. Administered Medications: 05/23 23:26 Drug: Ondansetron (Zofran) 4 mg Route: PO; lp1 05/24 00:53 Follow up: Response: No adverse reaction ea 05/23 23:27 Drug: TORadol 60 mg Route: IM; Site: right gluteus; lp1 05/24 00:53 Follow up: Response: No adverse reaction ea Outcome: 00:42 Discharge ordered by MD. pm1 00:53 Discharged to home ambulatory. ea 00:53 Condition: stable 00:53 Discharge instructions given to patient, Instructed on discharge instructions, follow up and referral plans. medication usage, Demonstrated understanding of instructions, follow-up care, medications. 00:53 Prescriptions given X 1. 00:53 Patient left the ED. ea Signatures: Dispatcher [employer] EDMS Cristin Bo RN RN lp1 Angel Guzman, ORTHOPEDIC PHYSICIAN ASSISTANT ORTHOPEDIC PHYSICIAN ASSISTANT pm1 Vanda Rhodes am2 Mary Lunsford RN RN ea Lulu Pringle RN RN ca1
--- NOTE | 2020-05-24 00:43 | EDPHYS ---
Physician Documentation [facility] Name: Ariel Hart Age: 29 yrs Sex: Male : 1990 Arrival Date: 05/23/2020 Time: 20:42 Bed 20 Private MD: ED Physician Damien Grossman HPI: 05/23 23:28 This 29 yrs old Male presents to ER via Ambulatory with complaints of pm1 Headache, Fall Injury - 1 wk ago. 23:28 The patient complains of pain to the back of head. The patient describes the headache pm1 as aching. Onset: The symptoms/episode began/occurred 1 week(s) ago. Associated signs and symptoms: Pertinent positives: neck pain, Pertinent negatives: fever, vomiting. Severity of symptoms: in the emergency department the pain is unchanged. Headache History: Denies prior headaches. The symptoms are alleviated by nothing. the symptoms are aggravated by nothing. The patient has not experienced similar symptoms in the past. The patient has not recently seen a physician. Patient tripped over his dog and fell backwards hitting his head. Historical: - Allergies: 20:57 No Known Allergies; ca1 - Home Meds: 20:57 None [Active]; ca1 - PMHx: 20:57 mitral valve prolapse; ca1 - PSHx: 20:57 Ear Tubes; ca1 - Immunization history:: Flu vaccine is not up to date. - Social history:: Smoking status: Patient reports the use of cigarette tobacco products, smokes one-half pack cigarettes per day. ROS: 23:28 Constitutional: Negative for fever, chills, and weight loss. pm1 23:28 Cardiovascular: Negative for chest pain, palpitations, and edema, Respiratory: Negative for shortness of breath, cough, wheezing, and pleuritic chest pain, Back: Negative for injury and pain, MS/Extremity: Negative for injury and deformity, Skin: Negative for injury, rash, and discoloration. 23:28 Neck: Positive for of the base of the skull, Pain. 23:28 Neuro: Positive for headache, of the left parietal area, right parietal area and occipital area. Exam: 23:28 Constitutional: This is a well developed, well nourished patient who is awake, alert, pm1 and in no acute distress. Head/Face: Normocephalic, atraumatic. Neck: Trachea midline, no thyromegaly or masses palpated, and no cervical lymphadenopathy. Supple, full range of motion without nuchal rigidity, or vertebral point tenderness. No Meningismus. 23:28 Back: No spinal tenderness. No costovertebral tenderness. Full range of motion. Skin: Warm, dry with normal turgor. Normal color with no rashes, no lesions, and no evidence of cellulitis. MS/ Extremity: Pulses equal, no cyanosis. Neurovascular intact. Full, normal range of motion. 23:28 Cardiovascular: Exam negative for acute changes, Rate: normal, Rhythm: regular, Pulses: no pulse deficits are appreciated. 23:28 Respiratory: Exam negative for acute changes, respiratory distress, shortness of breath. 23:28 Neuro: Exam negative for acute changes, Orientation: is normal, Motor: is normal, moves all fours. Vital Signs: 20:53 BP 112 / 71; Pulse 78; Resp 16 S; Temp 97.7(TE); Pulse Ox 100% on R/A; Weight 72.57 kg ca1 (R); Height 5 ft. 5 in. (165.10 cm) (R); Pain 9/10; 20:53 Body Mass Index 26.63 (72.57 kg, 165.10 cm) ca1 MDM: 23:10 Patient medically screened. pm1 23:59 Data reviewed: vital signs. pm1 05/24 00:41 Counseling: I had a detailed discussion with the patient and/or guardian regarding: the pm1 historical points, exam findings, and any diagnostic results supporting the discharge/admit diagnosis, radiology results, the need for outpatient follow up, to return to the emergency department if symptoms worsen or persist or if there are any questions or concerns that arise at home. 05/23 23:15 Order name: CT Head C Spine pm1 Administered Medications: 05/23 23:26 Drug: Ondansetron (Zofran) 4 mg Route: PO; lp1 05/24 00:53 Follow up: Response: No adverse reaction ea 05/23 23:27 Drug: TORadol 60 mg Route: IM; Site: right gluteus; lp1 05/24 00:53 Follow up: Response: No adverse reaction ea Disposition: 07:12 Co-signature as Attending Physician, Damien Grossman MD. mh7 Disposition: 01/25/21 00:42 Discharged to Home. Impression: Unspecified injury of head, Concussion without loss of consciousness. - Condition is Stable. - Discharge Instructions: Concussion, Adult, Head Injury, Adult. - Prescriptions for Zofran ODT 4 mg Oral tablet,disintegrating - place 1 tablet by TRANSLINGUAL route every 8 hours As needed; 12 tablet. - Medication Reconciliation Form, Thank You Letter, Antibiotic Education, Prescription Opioid Use form. - Follow up: Emergency Department; When: As needed; Reason: Worsening of condition. Follow up: Private Physician; When: 2 - 3 days; Reason: Recheck today's complaints, Continuance of care, Re-evaluation by your physician. - Problem is new. - Symptoms have improved. Signatures: Dispatcher [employer] EDMS Cristin Bo RN RN lp1 Angel Guzman NP OVERLOCK SLEEVE SETTER pm1 Mary Lunsford RN RN ea Acob, Cheryl, RN RN ca1 Holmes, Maurice, MD MD mh7 Corrections: (The following items were deleted from the chart) 00:53 00:42 05/24/2020 00:42 Discharged to Home. Impression: Unspecified injury of head; ea Concussion without loss of consciousness. Condition is Stable. Forms are Medication Reconciliation Form, Thank You Letter, Antibiotic Education, Prescription Opioid Use. Follow up: Emergency Department; When: As needed; Reason: Worsening of condition. Follow up: Private Physician; When: 2 - 3 days; Reason: Recheck today's complaints, Continuance of care, Re-evaluation by your physician. Problem is new. Symptoms have improved. pm1
[2020-05-24 01:05] VITALS: BP 112/71; TEMP 97.7; O2SAT 100
--- NOTE | 2020-05-24 16:16 | RAD REPORT ---
EXAM DESCRIPTION: 1. CT of the head without contrast 2. CT of the cervical spine without contrast. CLINICAL HISTORY: PAIN COMPARISON: None available TECHNIQUE: Axial CT of the head obtained from the skull apex to the skull base without contrast. Axi al CT images of the cervical spine obtained from the skull base through the thoracic inlet. Sagittal and coronal reformatted images available. FINDINGS: CT head: No acute intracranial hemorrhage identified. No mass, mass effect, shift of the midline, abnormal ext ra-axial fluid collection or CT evidence of acute ischemic change identified. The ventricular system is unremarkable. Cavum septa pellucida. No acute abnormalities of the supratentorial white matter, ba lavelle ganglia, cerebellum, or brainstem. The visualized paranasal sinuses and the mastoids are clear. No skull fracture identified. Visual ized orbits and globes are unremarkable. Cervical CT: Straightening of the cervical lordosis may be secondary to patient positioning. The atlantoaxial, a tlantodental, and occipitoatlantal intervals are preserved. No fracture identified. Vertebral body height preserved. Prevertebral soft tissues are unremarkable. Intervertebral disc height preserved. Visualized skull base is intact. No fracture of the visualized facial bones. Visualized mastoid air c ells and paranasal sinuses are well aerated. Visualized thyroid is unremarkable. No cervical lymphadenopathy. No pneumothorax in the visualized lung apices. IMPRESSION: 1. No acute intracranial abnormality. 2. No acute fracture or subluxation of the cervical spine. 3. This exam was performed according to our departmental dose-optimization program, which includes autom ated exposure control, adjustment of the mA and/or kV according to patient size and/or use of iterati ve reconstruction technique. Electronically signed by: Magdiel Lindo 05/24/2020 12:10 AM RETAIL ASSET PROTECTION SPECIALIST Due to temporary technical issues with the PACS/Fluency reporting system, reports are being signed by the in house radiologists without review as a courtesy to insure prompt reporting. The interpreting radiologist is fully responsible for the content of the report.
== END 2020-05-24 00:53 | disposition home or self-care (01) ==
LOC: ER 20:36
DX: S06.0X0A Concussion without loss of consciousness, initial encounter (principal); W19.XXXA Unspecified fall, initial encounter; I34.1 Nonrheumatic mitral (valve) prolapse; F17.210 Nicotine dependence, cigarettes, uncomplicated
CPT/HCPCS: 70450; 72125; 96372; 99284

== ENCOUNTER 2020-06-20 02:37 | Emergency (ER) | payer OTHER ==
[2020-06-20 03:17] LABS: Urine Blood 3+ (NEG); Urine Glucose NEGATIVE (NEG); Urine Protein 2+ (NEG); Urine Specific Gravity >1.030 (1.005-1.030)
[2020-06-20] MEDS ORDERED: ONDANSETRON 4 MG/2 ML VIAL ONE (03:36)
[2020-06-20] MEDS ORDERED: NA CHLORIDE 0.9% 1,000 ML ONE (03:36)
[2020-06-20] MEDS ORDERED: MORPHINE 4 MG/ML SYR ONE (03:36)
[2020-06-20 03:49] LABS: Absolute Lymphocytes (CBC) 2.7 K/uL (0.7-4.9); Basophils % 0.7 % (0-1.3); Hematocrit 47.7 % (39.6-49.0); Lymphocytes % 35.3 % (15.3-44.8); MPV 8.6 fL (7.6-11.3); RBC Red Blood Cell Count 5.03 M/uL (4.33-5.43)
[2020-06-20 04:11] LABS: Albumin 3.9 g/dL (3.4-5.0); Bilirubin Direct 0.1 mg/dL (0-0.2); Bilirubin Total 0.3 mg/dL (0.2-1.0); Potassium 3.5 mmol/L (3.5-5.1); Protein, Total 7.6 g/dL (6.4-8.2)
[2020-06-20] MEDS ORDERED: KETOROLAC 30 MG/ML INJ ONE (05:01)
--- NOTE | 2020-06-20 05:55 | ER ---
Nurse's Notes [facility] Name: Ariel Hart Age: 29 yrs Sex: Male : 1990 Arrival Date: 06/20/2020 Time: 02:38 Bed 15 Private MD: Diagnosis: Ureterolithiasis Presentation: 06/20 02:52 Chief complaint: Patient states: Reports right testicular pain that began 1 week ago, lp1 reports increasing symptoms of pain with urination, urinary frequency, right low back pain; Denies fever, testicular swelling. Coronavirus screen: Client denies travel out of the [place] in the last 14 days. At this time, the client does not indicate any symptoms associated with coronavirus-19. Ebola Screen: No symptoms or risks identified at this time. Risk Assessment: Do you want to hurt yourself or someone else? Patient reports no desire to harm self or others. Onset of symptoms was June 13, 2020. 02:52 Method Of Arrival: Ambulatory lp1 02:52 Acuity: BREN 3 lp1 02:55 Initial Sepsis Screen: Does the patient meet any 2 criteria? No. Patient's initial lp1 sepsis screen is negative. Does the patient have a suspected source of infection? No. Patient's initial sepsis screen is negative. Triage Assessment: 03:12 General: Appears uncomfortable, Behavior is restless. Pain: Complains of pain in right lp1 low back, right lower quadrant and groin Pain currently is 10 out of 10 on a pain scale. Historical: - Allergies: 02:55 No Known Allergies; lp1 - Home Meds: 02:55 None [Active]; lp1 - PMHx: 02:55 mitral valve prolapse; lp1 - PSHx: 02:55 Ear Tubes; lp1 - Immunization history:: Adult Immunizations up to date. - Social history:: Smoking status: Patient reports the use of cigarette tobacco products, smokes one-half pack cigarettes per day. Screenin:55 Abuse screen: Denies threats or abuse. Denies injuries from another. Nutritional lp1 screening: No deficits noted. Tuberculosis screening: No symptoms or risk factors identified. Fall Risk None identified. Assessment: 03:20 General: Appears uncomfortable, Behavior is calm, cooperative. Pain: Complains of pain ll2 in right flank and pelvis and abdomen and back and right lower quadrant and groin and right low back Pain currently is 10 out of 10 on a pain scale. Neuro: Level of Consciousness is awake, alert, obeys commands, Oriented to person, place, time, situation. Cardiovascular: Patient's skin is warm and dry. Respiratory: Airway is patent Respiratory effort is even, unlabored, Respiratory pattern is regular, symmetrical. GI: No signs and/or symptoms were reported involving the gastrointestinal system. : Reports urinary frequency. EENT: No signs and/or symptoms were reported regarding the EENT system. Derm: Skin is intact, is healthy with good turgor, Skin is dry, Skin is pink, warm \T\ dry. Musculoskeletal: Circulation, motion, and sensation intact. Range of motion: intact in all extremities. 05:18 Reassessment: Patient and/or family updated on plan of care and expected duration. Pain ll2 level reassessed. Patient is alert, oriented x 3, equal unlabored respirations, skin warm/dry/pink. 06:05 Reassessment: Patient and/or family updated on plan of care and expected duration. Pain ll2 level reassessed. Patient is alert, oriented x 3, equal unlabored respirations, skin warm/dry/pink. Vital Signs: 02:55 BP 141 / 127; Pulse 60; Resp 18; Temp 98.1(O); Pulse Ox 100% on R/A; Weight 68.95 kg lp1 (R); Height 5 ft. 5 in. (165.10 cm); Pain 10/10; 03:20 BP 146 / 102; Pulse 56; Resp 23; Pulse Ox 100% on R/A; ll2 04:30 BP 130 / 95; Pulse 64; Resp 20; Pulse Ox 99% on R/A; ll2 02:55 Body Mass Index 25.29 (68.95 kg, 165.10 cm) lp1 ED Course: 02:38 Patient arrived in ED. cf2 02:54 Triage completed. lp1 02:54 Arm band placed on right wrist. lp1 03:02 Damien Grossman MD is Attending Physician. 7 03:44 Torie Gordon, VERITO is Primary Nurse. ll2 03:50 CT Stone Protocol In Process Unspecified. EDMS 05:09 US Scrotum Testicles In Process Unspecified. EDMS 05:19 Patient has correct armband on for positive identification. Placed in gown. Bed in low ll2 position. Call light in reach. Side rails up X 1. Pulse ox on. NIBP on. 05:19 Inserted saline lock: 20 gauge in left antecubital area, using aseptic technique. ll2 05:20 Ultrasound completed. Patient tolerated well. Notified ED Physician payal. sg3 05:53 Ariel Currie MD is Referral Physician. [facility] 06:06 No provider procedures requiring assistance completed. IV discontinued, intact, ll2 bleeding controlled, No redness/swelling at site. Pressure dressing applied. Administered Medications: 03:20 Drug: NS 0.9% 1000 ml Route: IV; Rate: 1000 ml; Site: right antecubital; ll2 05:06 Follow up: Response: No adverse reaction; IV Status: Completed infusion; IV Intake: ll2 1000ml 03:20 Drug: morphine 4 mg Route: IVP; Site: right antecubital; ll2 05:06 Follow up: Response: No adverse reaction ll2 03:20 Drug: Zofran (Ondansetron) 4 mg Route: IVP; Site: right antecubital; ll2 05:06 Follow up: Response: No adverse reaction ll2 04:46 Drug: TORadol 30 mg Route: IVP; Site: right antecubital; ll2 06:05 Follow up: Response: No adverse reaction ll2 Intake: 05:06 IV: 1000ml; Total: 1000ml. ll2 Outcome: 05:54 Discharge ordered by . [facility] 06:06 Discharged to home ambulatory. ll2 06:06 Condition: stable 06:06 Discharge instructions given to patient, Instructed on discharge instructions, follow up and referral plans. medication usage, Demonstrated understanding of instructions, follow-up care, medications, Prescriptions given X 4. 06:07 Patient left the ED. ll2 Signatures: Dispatcher [employer] EDMS Cristin Bo RN RN lp1 Marisa Ramirez sg3 Samia Pelayo cf2 Torie Gordon RN RN ll2 Damien Grossman MD MD [facility]
--- NOTE | 2020-06-20 05:55 | EDPHYS ---
Physician Documentation [facility] Name: Ariel Hart Age: 29 yrs Sex: Male : 1990 Arrival Date: 06/20/2020 Time: 02:38 Bed 15 Private MD: ED Physician Damien Grossman HPI: 06/20 03:25 This 29 yrs old Male presents to ER via Ambulatory with complaints of mh7 Testicular Pain, Urinary Problem, Back Pain, Nausea. 03:25 The patient presents with flank pain, described as intermittent, sharp, waxing/waning, mh7 of the right flank, scrotal pain, of the right side, tenderness, that is moderate. Onset: The symptoms/episode began/occurred 1 week(s) ago. Modifying factors: The symptoms are alleviated by nothing, the symptoms are aggravated by nothing. Associated signs and symptoms: Pertinent positives: abdominal pain, urinary frequency, Pertinent negatives: constipation, diarrhea, fever, hematuria, nausea, vomiting. Severity of symptoms: At their worst the symptoms were moderate, last night, in the emergency department the symptoms are unchanged. Right testicle pain for 1 week. Started having right lower abdomen and right flank pain last night.. Historical: - Allergies: 02:55 No Known Allergies; lp1 - Home Meds: 02:55 None [Active]; lp1 - PMHx: 02:55 mitral valve prolapse; lp1 - PSHx: 02:55 Ear Tubes; lp1 - Immunization history:: Adult Immunizations up to date. - Social history:: Smoking status: Patient reports the use of cigarette tobacco products, smokes one-half pack cigarettes per day. ROS: 03:25 Constitutional: Negative for fever, chills, and weight loss, Eyes: Negative for injury, mh7 pain, redness, and discharge, ENT: Negative for injury, pain, and discharge, Neck: Negative for injury, pain, and swelling, Cardiovascular: Negative for chest pain, palpitations, and edema, Respiratory: Negative for shortness of breath, cough, wheezing, and pleuritic chest pain, MS/Extremity: Negative for injury and deformity, Skin: Negative for injury, rash, and discoloration, Neuro: Negative for headache, weakness, numbness, tingling, and seizure, Psych: Negative for depression, anxiety, suicide ideation, homicidal ideation, and hallucinations, Allergy/Immunology: Negative for hives, rash, and allergies, Endocrine: Negative for neck swelling, polydipsia, polyuria, polyphagia, and marked weight changes, Hematologic/Lymphatic: Negative for swollen nodes, abnormal bleeding, and unusual bruising. Exam: 03:25 Head/Face: Normocephalic, atraumatic. Eyes: Pupils equal round and reactive to light, mh7 extra-ocular motions intact. Lids and lashes normal. Conjunctiva and sclera are non-icteric and not injected. Cornea within normal limits. Periorbital areas with no swelling, redness, or edema. Neck: Trachea midline, no thyromegaly or masses palpated, and no cervical lymphadenopathy. Supple, full range of motion without nuchal rigidity, or vertebral point tenderness. No Meningismus. Chest/axilla: Normal chest wall appearance and motion. Nontender with no deformity. No lesions are appreciated. Cardiovascular: Regular rate and rhythm with a normal S1 and S2. No gallops, murmurs, or rubs. Normal PMI, no JVD. No pulse deficits. Respiratory: Lungs have equal breath sounds bilaterally, clear to auscultation and percussion. No rales, rhonchi or wheezes noted. No increased work of breathing, no retractions or nasal flaring. 03:25 Skin: Warm, dry with normal turgor. Normal color with no rashes, no lesions, and no evidence of cellulitis. MS/ Extremity: Pulses equal, no cyanosis. Neurovascular intact. Full, normal range of motion. Neuro: Awake and alert, GCS 15, oriented to person, place, time, and situation. Cranial nerves II-XII grossly intact. Motor strength 5/5 in all extremities. Sensory grossly intact. Cerebellar exam normal. Normal gait. Psych: Awake, alert, with orientation to person, place and time. Behavior, mood, and affect are within normal limits. 03:25 Constitutional: The patient appears in no acute distress, alert, awake, uncomfortable. 03:25 Abdomen/GI: Inspection: abdomen appears normal, Bowel sounds: normal, in all quadrants, Palpation: moderate abdominal tenderness, in the right lower quadrant, Rectal exam: the exam is deferred, because of patient request, Indicators: McBurney's point is not tender, Gay's sign is negative, Rovsing's sign is negative, Obturator sign is negative, Psoas sign is negative, Liver: no appreciated palpable abnormalities, Hernia: not appreciated. 03:25 Back: ROM is normal, normal spinal alignment noted, CVA tenderness, that is mild, is noted on the right, muscle spasm, is not present. 03:25 : CVA tenderness, on the right, Male external genitalia: Circumcision noted. tenderness, of the epididymis area, that is mild, Bladder: is normal. Vital Signs: 02:55 BP 141 / 127; Pulse 60; Resp 18; Temp 98.1(O); Pulse Ox 100% on R/A; Weight 68.95 kg lp1 (R); Height 5 ft. 5 in. (165.10 cm); Pain 10/10; 03:20 BP 146 / 102; Pulse 56; Resp 23; Pulse Ox 100% on R/A; ll2 04:30 BP 130 / 95; Pulse 64; Resp 20; Pulse Ox 99% on R/A; ll2 02:55 Body Mass Index 25.29 (68.95 kg, 165.10 cm) lp1 MDM: 05:51 Differential diagnosis: nonspecific abdominal pain, appendicitis, UTI, urethritis, mh7 Ureterolithiasis. Data reviewed: vital signs, nurses notes, lab test result(s), CBC, electrolytes, urinalysis, radiologic studies, CT scan. Data interpreted: Pulse oximetry: on room air is 99 %. Interpretation: normal. Counseling: I had a detailed discussion with the patient and/or guardian regarding: the historical points, exam findings, and any diagnostic results supporting the discharge/admit diagnosis, the presence of at least one elevated blood pressure reading (>120/80) during this emergency department visit, lab results, radiology results, the need for outpatient follow up, a urologist. Response to treatment: the patient's symptoms have resolved after treatment, the patient's blood pressure is in an acceptable range, mental status has returned to baseline, the patient no longer shows bradycardia, the patient is not short of breath, the patient is not tachycardic, the patient's pain is gone, the patient's temperature has normalized. 05:54 Patient medically screened. 7 06/20 03:11 Order name: Urine Dipstick--Ancillary (enter results); Complete Time: 03:50 tt3 06/20 03:14 Order name: Basic Metabolic Panel; Complete Time: 04:18 [facility] 06/20 03:14 Order name: CBC with Diff; Complete Time: 03:56 [facility] 06/20 03:14 Order name: Hepatic Function; Complete Time: 04:18 [facility] 06/20 03:14 Order name: Lipase; Complete Time: 04:18 [facility] 06/20 03:15 Order name: CT Stone Protocol [facility] 06/20 03:11 Order name: Urine Dipstick-Ancillary (obtain specimen); Complete Time: 03:11 lp1 06/20 03:14 Order name: IV Saline Lock; Complete Time: 03:45 [facility] 06/20 03:16 Order name: US Scrotum Testicles [facility] 06/20 03:14 Order name: Labs collected and sent; Complete Time: 03:45 7 Administered Medications: 03:20 Drug: NS 0.9% 1000 ml Route: IV; Rate: 1000 ml; Site: right antecubital; ll2 05:06 Follow up: Response: No adverse reaction; IV Status: Completed infusion; IV Intake: ll2 1000ml 03:20 Drug: morphine 4 mg Route: IVP; Site: right antecubital; ll2 05:06 Follow up: Response: No adverse reaction ll2 03:20 Drug: Zofran (Ondansetron) 4 mg Route: IVP; Site: right antecubital; ll2 05:06 Follow up: Response: No adverse reaction 2 04:46 Drug: TORadol 30 mg Route: IVP; Site: right antecubital; ll2 06:05 Follow up: Response: No adverse reaction 2 Disposition: 06/20/20 05:54 Discharged to Home. Impression: Ureterolithiasis. - Condition is Stable. - Discharge Instructions: Kidney Stones, [id number]. - Prescriptions for Zofran ODT 4 mg Oral tablet,disintegrating - place 1 tablet by TRANSLINGUAL route every 8 hours As needed; 6 tablet. Ibuprofen 800 mg Oral Tablet - take 1 tablet by ORAL route every 8 hours As needed take with food; 15 tablet. Tylenol- Codeine #3 300-30 mg Oral Tablet - take 2 tablets by ORAL route every 6 hours As needed; 20 tablet. Flomax 0.4 mg Oral Capsule, Sust. Release 24 hr - take 1 capsule by ORAL route once daily 1/2 hour following the same meal each day; 10 capsule. - Medication Reconciliation Form, Thank You Letter, Antibiotic Education, Prescription Opioid Use form. - Follow up: Private Physician; When: 1 - 2 days; Reason: Worsening of condition, Recheck today's complaints, Continuance of care, Re-evaluation by your physician. Follow up: Ariel Currie MD; When: 1 - 2 days; Reason: Worsening of condition, Recheck today's complaints, Continuance of care. - Problem is new. - Symptoms have improved. Signatures: Dispatcher [employer] EDMS Cristin Bo RN RN lp1 Torie Gordon RN RN ll2 Damien Grossman MD MD 7 Braydon Oliver tt3 Corrections: (The following items were deleted from the chart) 03:12 03:11 Urine Dipstick-Ancillary ordered. tt3 tt3 06:07 05:54 06/20/2020 05:54 Discharged to Home. Impression: Ureterolithiasis. Condition is ll2 Stable. Forms are Medication Reconciliation Form, Thank You Letter, Antibiotic Education, Prescription Opioid Use. Follow up: Private Physician; When: 1 - 2 days; Reason: Worsening of condition, Recheck today's complaints, Continuance of care, Re-evaluation by your physician. Follow up: Ariel Currie; When: 1 - 2 days; Reason: Worsening of condition, Recheck today's complaints, Continuance of care. Problem is new. Symptoms have improved. mh7
[2020-06-20 06:12] VITALS: TEMP 98.1
[2020-06-20 06:15] VITALS: BP 130/95; O2SAT 99
--- NOTE | 2020-06-20 20:02 | RAD REPORT ---
EXAM DESCRIPTION: US - Scrotum Testicles - 06/20/2020 5:09 am CLINICAL HISTORY: Pain COMPARISON: CT from earlier today TECHNIQUE: Ultrasound of the scrotum was done utilizing grayscale and color Doppler imaging. FINDINGS: The right testis measures 4.4 x 2.5 x 3 centimeters. The left testis measures 4.4 x 2.3 x 3 centimeters. There are no focal intra testicular masses on either side. There is normal blood flow in the bilateral testes. There is normal blood flow in the bilateral epididymi. There is no hydrocele on either side. There is no varicocele on either side. There is no visualization of any scrotal hernias. IMPRESSION: Normal scrotal ultrasound. Electronically signed by: Wilder Thompson DO 06/20/2020 5:17 AM MARKETING AND PROMOTIONS MANAGER Due to temporary technical issues with the PACS/Fluency reporting system, reports are being signed by the in house radiologists without review as a courtesy to insure prompt reporting. The interpreting radiologist is fully responsible for the content of the report.
--- NOTE | 2020-06-20 20:05 | RAD REPORT ---
EXAM DESCRIPTION: CT - Stone Protocol - 06/20/2020 6:11 am CLINICAL HISTORY: 9 years Male, Flank pain;Abd pain COMPARISON: None TECHNIQUE: Contiguous axial CT images of the abdomen and pelvis were obtained. Sagittal and coronal reformats were reviewed. This exam was performed according to our departmental dose-optimization pr ogram, which includes automated exposure control, adjustment of the mA and/or kV according to patient size and/or use of iterative reconstruction technique. FINDINGS: Lung bases: Clear. Liver: Unremarkable. No focal liver lesion. Gallbladder: Unremarkable. No gallstones. No gallbladder wall thickening or pericholecystic fluid. Spleen: Unremarkable Pancreas: Pancreas is unremarkable. Adrenal glands: Within normal limits. Kidneys/ureters: Moderate right hydronephrosis and mild hydroureter secondary to a 3 mm calculus in t he distal ureter just above the ureteral vesicle junction. Additional nonobstructive 1 mm calculus in the inferior right renal pole. No hydronephrosis or nephrolithiasis on the left. Stomach/small bowel/colon: Stomach is unremarkable. Small bowel is unremarkable. Colon is unremar kable. Appendix: No evidence of appendicitis. Peritoneum: No free fluid. Vascular structures: within normal limits Lymph nodes: No abnormal lymph nodes. Bladder: Unremarkable. Pelvic organs: No acute abnormality Bones: No acute osseous abnormality. Soft tissues: Unremarkable.. IMPRESSION: Obstructive calculus in the distal right ureter just above the ureterovesical junction m easuring approximately 3 mm. Electronically signed by: Wilder Thompson DO 06/20/2020 4:17 AM HEALTH SCIENCE WRITER Due to temporary technical issues with the PACS/Fluency reporting system, reports are being signed by the in house radiologists without review as a courtesy to insure prompt reporting. The interpreting radiologist is fully responsible for the content of the report.
== END 2020-06-20 06:07 | disposition home or self-care (01) ==
LOC: ER 02:37
DX: N20.1 Calculus of ureter (principal); F17.210 Nicotine dependence, cigarettes, uncomplicated
CPT/HCPCS: 96361; 85025; 80048; 36415; 80076; 81003; 83690; 76377; 74176; 76870; 96375; 96374; 99284; J7030; J2405

== ENCOUNTER 2021-11-10 21:56 | Emergency (ER) | payer BC, SELFPAY ==
[2021-11-10 22:37] LABS: Absolute Lymphocytes (CBC) 2.2 K/uL (0.7-4.9); Hematocrit 39.5 % (39.6-49.0); Lymphocytes % 24.4 % (15.3-44.8); MCV 95.1 fL (80-100); MPV 7.9 fL (7.6-11.3); RBC Red Blood Cell Count 4.16 M/uL (4.33-5.43)
[2021-11-10 22:49] LABS: Potassium 3.4 mmol/L (3.5-5.1); Troponin High Sensitivity 4.1 pg/mL (<58.9)
[2021-11-10] MEDS ORDERED: NA CHLORIDE 0.9% 1,000 ML ONE (23:16)
[2021-11-10 23:32] LABS: Urine Blood Negative (Negative); Urine Glucose Trace (Negative); Urine Protein Negative (Negative); Urine Specific Gravity >=1.030 (1.005-1.030)
[2021-11-11 00:14] LABS: Barbiturates NEGATIVE (NEGATIVE); Benzodiazepines NEGATIVE (NEGATIVE); Cocaine NEGATIVE (NEGATIVE); METHAMPHETAM NEGATIVE (NEGATIVE); Methadone NEGATIVE (NEGATIVE); Opiates NEGATIVE (NEGATIVE); Phencyclidine NEGATIVE (NEGATIVE); THC Cannibis POSITIVE (NEGATIVE)
--- NOTE | 2021-11-11 01:58 | ER ---
Nurse's Notes [facility] Name: Ariel Hart Age: 31 yrs Sex: Male : 1990 Arrival Date: 11/10/2021 Time: 21:58 Bed 17 Private MD: Diagnosis: Chest pain, unspecified;Cannabis abuse;Viral syndrome;Solitary pulmonary nodule Presentation: 11/10 22:01 Chief complaint: Patient states: today I've been sweating more than I normally do, and kd3 I've been shaky. I usually do my inhaler about two times a day but today I've been on it all day because I've felt real winded. my left ring finger was twitching too and part of my left arm went numb and I started having chest pain. It felt real sharp. It started on the left side and then went to the right and then back to the left. I have a history of mitral valve prolapse. Coronavirus screen: Vaccine status: Patient reports being unvaccinated. Ebola Screen: No symptoms or risks identified at this time. Initial Sepsis Screen: Does the patient meet any 2 criteria? No. Patient's initial sepsis screen is negative. Does the patient have a suspected source of infection? No. Patient's initial sepsis screen is negative. Risk Assessment: Do you want to hurt yourself or someone else? Patient reports no desire to harm self or others. Onset of symptoms was November 10, 2021. 22:01 Method Of Arrival: Ambulatory kd3 22:01 Acuity: BREN 3 kd3 Triage Assessment: 22:06 General: Appears in no apparent distress. Behavior is calm, cooperative. Pain: kd3 Complains of pain in anterior aspect of right upper chest and anterior aspect of left upper chest. Cardiovascular: Patient's skin is warm and dry. 22:06 Pain: Pain radiates to dorsal aspect of left forearm. kd3 Historical: - PMHx: 22:06 mitral valve prolapse; kd3 - Immunization history:: Adult Immunizations up to date. - Social history:: Smoking status: Patient reports the use of cigarette tobacco products, smokes one-half pack cigarettes per day. Screenin:07 Abuse screen: Denies threats or abuse. Denies injuries from another. Nutritional kd3 screening: No deficits noted. Tuberculosis screening: No symptoms or risk factors identified. Fall Risk None identified. Assessment: 22:20 General: Appears in no apparent distress. comfortable, Behavior is calm, cooperative. lg3 Pain: Denies pain. Pain began 1 day ago. Is intermittent, episodic, lasting a few minutes. Also complains of diaphoresis. Neuro: No deficits noted. Level of Consciousness is awake, alert, obeys commands, Oriented to person, place, time, situation. Cardiovascular: Reports chest pain, Capillary refill < 3 seconds Clubbing of nail beds is absent JVD is absent Patient's skin is warm and dry. Rhythm is sinus rhythm. Respiratory: No deficits noted. Reports cough that is Airway is patent Trachea midline Respiratory effort is even, unlabored, Respiratory pattern is regular, symmetrical, Breath sounds are clear bilaterally. GI: No deficits noted. No signs and/or symptoms were reported involving the gastrointestinal system. Abdomen is flat, non-distended, Bowel sounds present X 4 quads. Abd is soft and non tender X 4 quads. : No deficits noted. No signs and/or symptoms were reported regarding the genitourinary system. EENT: No deficits noted. No signs and/or symptoms were reported regarding the EENT system. Derm: No deficits noted. No signs and/or symptoms reported regarding the dermatologic system. Skin is intact, is healthy with good turgor, Skin is dry, Skin temperature is warm. Musculoskeletal: No deficits noted. Circulation, motion, and sensation intact. Range of motion: intact in all extremities, Reports numbness in left arm. 11/11 00:26 Reassessment: Patient appears in no apparent distress at this time. No changes from lg3 previously documented assessment. Patient and/or family updated on plan of care and expected duration. Pain level reassessed. Patient is alert, oriented x 3, equal unlabored respirations, skin warm/dry/pink. Patient states symptoms have improved. 01:56 Reassessment: Patient appears in no apparent distress at this time. No changes from lg3 previously documented assessment. Patient and/or family updated on plan of care and expected duration. Pain level reassessed. Patient is alert, oriented x 3, equal unlabored respirations, skin warm/dry/pink. Vital Signs: 11/10 22:01 BP 114 / 74; Pulse 86; Resp 18; Temp 98.2; Pulse Ox 97% ; Weight 68.04 kg; Height 5 ft. kd3 4 in. (162.56 cm); Pain 4/10; 11/11 01:56 BP 116 / 76; Pulse 88; Resp 18 S; Pulse Ox 98% on R/A; lg3 11/10 22:01 Body Mass Index 25.75 (68.04 kg, 162.56 cm) kd3 ED Course: 11/10 21:58 Patient arrived in ED. bp1 22:06 Triage completed. kd3 22:06 Arm band placed on right wrist. kd3 22:07 Patient has correct armband on for positive identification. kd3 22:15 Torie Mendoza, RN is Primary Nurse. lg3 22:20 Client placed on continuous cardiac and pulse oximetry monitoring. NIBP monitoring lg3 applied. secured entrance monitor on. Door closed. Noise minimized. Warm blanket given. Family accompanied patient. 22:20 Patient maintains SpO2 saturation greater than 95% on room air. lg3 22:21 Inserted saline lock: 20 gauge in right antecubital area, using aseptic technique. kd3 Blood collected. 22:22 Basic Metabolic Panel Sent. lg3 22:22 CBC with Diff Sent. lg3 22:22 Troponin HS Sent. lg3 22:33 Damien Grossman MD is Attending Physician. mh7 22:49 XRAY Chest (1 view) In Process Unspecified. EDMS 23:42 Influenza Screen (a \\T\\ B) Sent. lg3 23:42 Rapid Strep Sent. lg3 23:42 COVID-19 SARS RT PCR (Document "Date of Onset" if Symptomatic) Sent. lg3 23:42 UDS Sent. lg3 11/11 00:02 D-Dimer Sent. lg3 00:38 CT Chest For PE Angio In Process Unspecified. EDMS 02:17 No provider procedures requiring assistance completed. IV discontinued, intact, lg3 bleeding controlled, No redness/swelling at site. Pressure dressing applied. Administered Medications: 01:55 Not Given (Physician Discretion): NS 0.9% 1000 ml IV at 1000 ml once lg3 02:17 Drug: Potassium Effervescent Tablet 25 mEq Route: PO; lg3 02:17 Follow up: Response: No adverse reaction lg3 Medication: 02:18 VIS not applicable for this client. lg3 Outcome: 01:57 Discharge ordered by . [facility] 02:18 Discharged to home ambulatory, with significant other. lg3 02:18 Condition: stable 02:18 Discharge instructions given to patient, significant other, Instructed on discharge instructions, medication usage, Demonstrated understanding of instructions, medications, Prescriptions given X 1. 02:29 Patient left the ED. lg3 Signatures: Dispatcher [employer] EDMS Torie Mendoza RN RN lg3 Sulma Santiago Maurice, MD MD mh7 Tarah Luna RN RN kd3 Corrections: (The following items were deleted from the chart) :11/10 22:20 Cardiovascular: Reports chest pain, Capillary refill < 3 seconds Clubbing lg3 of nail beds is absent JVD is absent Patient's skin is warm and dry. Rhythm is sinus rhythm lg3 11/11 00:11/10 22:20 Musculoskeletal: No deficits noted. No signs and/or symptoms reported lg3 regarding the musculoskeletal system. Circulation, motion, and sensation intact. Range of motion: intact in all extremities, lg3
--- NOTE | 2021-11-11 01:58 | EDPHYS ---
Physician Documentation [facility] Name: Ariel Hart Age: 31 yrs Sex: Male : 1990 Arrival Date: 11/10/2021 Time: 21:58 Bed 17 Private MD: ED Physician Damien Grossman HPI: 11/10 22:40 This 31 yrs old Male presents to ER via Ambulatory with complaints of Chest Pain, mh7 Numbness Of Arm. 22:40 The patient or guardian reports cough, that is intermittent, described as moderate, mh7 with no sputum, difficulty breathing, flu symptoms, myalgias, congestion. Onset: The symptoms/episode began/occurred 2 day(s) ago. Severity of symptoms: At their worst the symptoms were moderate, yesterday, in the emergency department the symptoms are unchanged. Modifying factors: The symptoms are alleviated by nothing, the symptoms are aggravated by nothing. 22:40 Associated signs and symptoms: Pertinent positives: chest pain, with cough, with mh7 movement, congestion, feeling shaky, numbness/tingling of hands, Pertinent negatives: diarrhea, ear ache, fever, nausea, rhinorrhea, sore throat, vomiting. Historical: - PMHx: 22:06 mitral valve prolapse; kd3 - Immunization history:: Adult Immunizations up to date. - Social history:: Smoking status: Patient reports the use of cigarette tobacco products, smokes one-half pack cigarettes per day. ROS: 22:40 Constitutional: Negative for fever, chills, and weight loss, Eyes: Negative for injury, mh7 pain, redness, and discharge, ENT: Negative for injury, pain, and discharge, Neck: Negative for injury, pain, and swelling, Abdomen/GI: Negative for abdominal pain, nausea, vomiting, diarrhea, and constipation, Back: Negative for injury and pain, : Negative for injury, bleeding, discharge, and swelling, MS/Extremity: Negative for injury and deformity, Skin: Negative for injury, rash, and discoloration, Psych: Negative for depression, anxiety, suicide ideation, homicidal ideation, and hallucinations, Allergy/Immunology: Negative for hives, rash, and allergies, Endocrine: Negative for neck swelling, polydipsia, polyuria, polyphagia, and marked weight changes, Hematologic/Lymphatic: Negative for swollen nodes, abnormal bleeding, and unusual bruising. 22:40 Neuro: Negative for altered mental status, dizziness, gait disturbance, headache, hearing loss, loss of consciousness, seizure activity, speech changes, syncope, near syncope, tinnitus, visual changes, weakness. Exam: 22:40 Constitutional: This is a well developed, well nourished patient who is awake, alert, mh7 and in no acute distress. Head/Face: Normocephalic, atraumatic. Eyes: Pupils equal round and reactive to light, extra-ocular motions intact. Lids and lashes normal. Conjunctiva and sclera are non-icteric and not injected. Cornea within normal limits. Periorbital areas with no swelling, redness, or edema. ENT: Nares patent. No nasal discharge, no septal abnormalities noted. Tympanic membranes are normal and external auditory canals are clear. Oropharynx with no redness, swelling, or masses, exudates, or evidence of obstruction, uvula midline. Mucous membranes moist. 22:40 Chest/axilla: Normal chest wall appearance and motion. Nontender with no deformity. No lesions are appreciated. Cardiovascular: Regular rate and rhythm with a normal S1 and S2. No gallops, murmurs, or rubs. Normal PMI, no JVD. No pulse deficits. Respiratory: Lungs have equal breath sounds bilaterally, clear to auscultation and percussion. No rales, rhonchi or wheezes noted. No increased work of breathing, no retractions or nasal flaring. Abdomen/GI: Soft, non-tender, with normal bowel sounds. No distension or tympany. No guarding or rebound. No evidence of tenderness throughout. Back: No spinal tenderness. No costovertebral tenderness. Full range of motion. Skin: Warm, dry with normal turgor. Normal color with no rashes, no lesions, and no evidence of cellulitis. MS/ Extremity: Pulses equal, no cyanosis. Neurovascular intact. Full, normal range of motion. Neuro: Awake and alert, GCS 15, oriented to person, place, time, and situation. Cranial nerves II-XII grossly intact. Motor strength 5/5 in all extremities. Sensory grossly intact. Cerebellar exam normal. Normal gait. Psych: Awake, alert, with orientation to person, place and time. Behavior, mood, and affect are within normal limits. 22:40 ENT: Mouth: Oral mucosa: dry. Vital Signs: 22:01 BP 114 / 74; Pulse 86; Resp 18; Temp 98.2; Pulse Ox 97% ; Weight 68.04 kg; Height 5 ft. kd3 4 in. (162.56 cm); Pain 08/07; 11/11 01:56 BP 116 / 76; Pulse 88; Resp 18 S; Pulse Ox 98% on R/A; lg3 11/10 22:01 Body Mass Index 25.75 (68.04 kg, 162.56 cm) kd3 MDM: 01:54 Differential Diagnosis: Obstructed Airway Bronchitis Influenza Upper Respiratory 7 Infection Sinusitis Pharyngitis Allergic Rhinitis Asthma Exacerbation Viral Syndrome. Data reviewed: vital signs, nurses notes, lab test result(s), cardiac enzymes, CBC, electrolytes, Flu: negative urinalysis, urine drug screen, EKG, radiologic studies, CT scan, plain films. Data interpreted: Pulse oximetry: on room air is 97 %. Interpretation: normal. 01:55 Counseling: I had a detailed discussion with the patient and/or guardian regarding: the [facility] historical points, exam findings, and any diagnostic results supporting the discharge/admit diagnosis, lab results, radiology results, the need for outpatient follow up, to return to the emergency department if symptoms worsen or persist or if there are any questions or concerns that arise at home. Response to treatment: the patient's symptoms have resolved after treatment, the patient's blood pressure is in an acceptable range, mental status has returned to baseline, the patient no longer shows bradycardia, the patient is not short of breath, the patient is not tachycardic, the patient's pain is gone, the patient's temperature has normalized. 01:57 Patient medically screened. [facility] 11/10 22:20 Order name: Basic Metabolic Panel; Complete Time: 22:58 [facility] 11/10 22:20 Order name: CBC with Diff; Complete Time: 22:58 [facility] 11/10 22:20 Order name: Troponin HS; Complete Time: 22:58 [facility] 11/10 22:59 Order name: UDS; Complete Time: 00:52 [facility] 11/10 22:59 Order name: COVID-19 SARS RT PCR (Document "Date of Onset" if Symptomatic); Complete [facility] Time: 01:11/10 22:59 Order name: Influenza Screen (a \\T\\ B); Complete Time: 00:52 [facility] 11/10 22:20 Order name: XRAY Chest (1 view) [facility] 11/10 22:59 Order name: Rapid Strep; Complete Time: 00:52 [facility] 11/10 23:00 Order name: CK; Complete Time: 00:13 [facility] 11/10 23:11 Order name: D-Dimer; Complete Time: 00:52 [facility] 11/10 23:25 Order name: CT Chest For PE Angio [facility] 11/10 23:33 Order name: Urine Dipstick-Ancillary; Complete Time: 00:13 [facility] 11/11 00:13 Order name: PROBNP; Complete Time: 00:52 [facility] 11/11 00:51 Order name: Throat Culture [facility] 11/10 22:20 Order name: EKG; Complete Time: 22:21 [facility] 11/10 22:20 Order name: Cardiac monitoring; Complete Time: 22:22 [facility] 11/10 22:20 Order name: EKG - Nurse/Tech; Complete Time: 22:20 [facility] 11/10 22:20 Order name: IV Saline Lock; Complete Time: 22:20 [facility] 11/10 22:20 Order name: Labs collected and sent; Complete Time: 22:20 [facility] 11/10 22:20 Order name: O2 Per Protocol; Complete Time: 22:20 [facility] 11/10 22:20 Order name: O2 Sat Monitoring; Complete Time: 22:22 [facility] 11/10 22:59 Order name: Urine Dipstick-Ancillary (obtain specimen); Complete Time: 23:42 [facility] Administered Medications: 01:55 Not Given (Physician Discretion): NS 0.9% 1000 ml IV at 1000 ml once lg3 02:17 Drug: Potassium Effervescent Tablet 25 mEq Route: PO; lg3 02:17 Follow up: Response: No adverse reaction lg3 Disposition Summary: 11/11/21 01:57 Discharge Ordered Location: Home [facility] Problem: new [facility] Symptoms: have improved [facility] Condition: Stable [facility] Diagnosis - Chest pain, unspecified [facility] - Cannabis abuse [facility] - Viral syndrome [facility] - Solitary pulmonary nodule [facility] Followup: [facility] - With: Private Physician - When: 1 - 2 days - Reason: Worsening of condition, Recheck today's complaints, Continuance of care, Re-evaluation by your physician Discharge Instructions: - Discharge Summary Sheet mh7 - Cannabis Use Disorder 7 - Nonspecific Chest Pain, Adult, [id number] 7 - Viral Respiratory Infection, [id number] 7 - Pulmonary Nodule, [id number] [facility] Forms: - Medication Reconciliation Form 7 - Thank You Letter 7 - Antibiotic Education 7 - Prescription Opioid Use 7 - Work release form vc1 Prescriptions: - GUAIFENESIN - take 1 tablet by ORAL route every 4 hours As needed; 20 tablet; Refills: 0, mh7 Product Selection Permitted Signatures: Dispatcher [employer] Torie Skinner, RN RN lg3 Damien Grossman MD MD mh7 Tarah Luna RN RN kd3
[2021-11-11] MEDS ORDERED: POTASSIUM 25 MEQ EFFERV TAB ONE (02:05)
[2021-11-11 02:56] VITALS: BP 116/76; O2SAT 98
[2021-11-11 02:58] VITALS: TEMP 98.2
--- NOTE | 2021-11-11 17:30 | RAD REPORT ---
EXAM DESCRIPTION: CT - Chest For Pe Angio - 11/11/2021 7:38 am CLINICAL HISTORY: 31 years Male chest pain COMPARISON: Radiograph of the chest performed on the same day. TECHNIQUE: Images were obtained in axial, sagittal, and coronal planes. Intravenous contrast was adm inistered. 3-D MIP imaging was performed. This exam was performed according to our departmental dose-optimization program which includes use of Automated Exposure Control, adjustment of the mA and/or kV according to patient size and/or use of iterative reconstruction technique. FINDINGS: No filling defects pulmonary arteries bilaterally. No aortic dissection or dilatation. No right heart strain. No pericardial or pleural effusions bilaterally. 1.9 cm calcified lymph node aortopulmonary window. No lung parenchymal infiltrates seen. No pneumothorax. 8mm noncalcified nodule medial left lingula co ntiguous with pericardial fat. No lung parenchymal nodules on right. No abnormality upper abdomen. No acute osseous abnormality. IMPRESSION: No evidence for pulmonary embolus. No aortic dissection or dilatation. No infiltrate see n. Enlarged calcified lymph node aortopulmonary window. 8mm noncalcified nodule contiguous with pericard ial fat medial lingula. Granulomatous change suspected. 3-6 month follow-up CT scan of the chest raudel hudson to further confirm stability. Electronically signed by: Joan Posadas MD 11/11/2021 1:13 AM CDT Due to temporary technical issues with the PACS/Fluency reporting system, reports are being signed by the in house radiologists without review as a courtesy to insure prompt reporting. The interpreting radiologist is fully responsible for the content of the report.
--- NOTE | 2021-11-12 09:04 | EKG ---
Test Date: 2021-11-10 Test Time: 22:16:36 Head Waiter: NILSON MEASUREMENT RESULTS: Intervals: Rate: 81 CA: 150 QRSD: 84 QT: 376 QTc: 436 [place]: P: 61 CA: 150 QRS: 27 T: 34 INTERPRETIVE STATEMENTS: Normal sinus rhythm Nonspecific T wave abnormality Abnormal ECG Compared to ECG 10/03/2019 16:22:29 T-wave abnormality now present Sinus arrhythmia no longer present Electronically Signed On 11-12-21 09:02:46 CDT by Claude Mac
--- NOTE | 2021-11-12 19:57 | RAD REPORT ---
EXAM DESCRIPTION: RAD - Chest Single View - 11/10/2021 10:47 pm CLINICAL HISTORY: 31 years Male CHEST PAIN COMPARISON: None TECHNIQUE: AP view of the chest was obtained. FINDINGS: Cardiac silhouette is enlarged. Central vessels are moderately increased. Infrahilar airspace opacities bilaterally. No effusions bilaterally. No pneumothorax. IMPRESSION: Enlarged heart with moderate central congestion. Atelectatic change versus infiltrate in frahilar regions bilaterally. Electronically signed by: Joan Posadas MD 11/10/2021 11:09 PM CDT Due to temporary technical issues with the PACS/Fluency reporting system, reports are being signed by the in house radiologists without review as a courtesy to insure prompt reporting. The interpreting radiologist is fully responsible for the content of the report.
== END 2021-11-11 02:29 | disposition home or self-care (01) ==
LOC: ER 21:56
DX: R07.9 Chest pain, unspecified (principal); B34.9 Viral infection, unspecified; F12.10 Cannabis abuse, uncomplicated; R91.1 Solitary pulmonary nodule; F17.210 Nicotine dependence, cigarettes, uncomplicated; Z20.822 Contact with and (suspected) exposure to COVID-19
CPT/HCPCS: 93005; 87070; 85025; 80048; 36415; 82550; 85379; 87081; 81003; 84484; 83880; 80307; 87804 ×2; 71275; 71045; 99285; U0003; Q9967; J7030

== ENCOUNTER 2021-12-04 20:58 | Emergency (ER) | payer BC ==
--- NOTE | 2021-12-04 22:01 | RAD REPORT ---
EXAM DESCRIPTION: [place] Single View12/04/2021 9:49 pm CLINICAL HISTORY: Chest pain COMPARISON: October 2021 FINDINGS: The lungs appear clear of acute infiltrate. The heart is normal size IMPRESSION: No acute abnormalities displayed
[2021-12-04] MEDS ORDERED: ONDANSETRON 4 MG/2 ML VIAL ONE (22:08)
[2021-12-04] MEDS ORDERED: MORPHINE 4 MG/ML SYR ONE (22:08)
[2021-12-04 22:23] LABS: Absolute Lymphocytes (CBC) 2.2 K/uL (0.7-4.9); Hematocrit 44.1 % (39.6-49.0); Lymphocytes % 27.1 % (15.3-44.8); MCV 93.2 fL (80-100); MPV 7.3 fL (7.6-11.3); RBC Red Blood Cell Count 4.73 M/uL (4.33-5.43)
[2021-12-04 22:30] LABS: Protime INR 1.04
[2021-12-04 22:43] LABS: Albumin 3.8 g/dL (3.4-5.0); Bilirubin Direct 0.1 mg/dL (0-0.2); Bilirubin Total 0.5 mg/dL (0.2-1.0); Magnesium 2.2 mg/dL (1.8-2.4); Potassium 3.8 mmol/L (3.5-5.1); Protein, Total 7.4 g/dL (6.4-8.2); Troponin High Sensitivity 4.7 pg/mL (<58.9)
[2021-12-04] MEDS ORDERED: KETOROLAC 30 MG/ML INJ ONE (23:15)
[2021-12-04 23:22] LABS: SARS-CoV-2 Antigen Rapid Res Negative (Negative)
[2021-12-04 23:39] LABS: Urine Blood Negative (Negative); Urine Glucose Negative (Negative); Urine Protein Trace (Negative); Urine Specific Gravity >=1.030 (1.005-1.030); Urine pH 5.5 (5.0-7.0)
[2021-12-04 23:55] LABS: Barbiturates NEGATIVE (NEGATIVE); Benzodiazepines NEGATIVE (NEGATIVE); Cocaine NEGATIVE (NEGATIVE); METHAMPHETAM NEGATIVE (NEGATIVE); Methadone NEGATIVE (NEGATIVE); Opiates POSITIVE (NEGATIVE); Phencyclidine NEGATIVE (NEGATIVE); THC Cannibis POSITIVE (NEGATIVE)
--- NOTE | 2021-12-05 00:11 | ER ---
Nurse's Notes Formerly [facility] Name: Ariel Hart Age: 31 yrs Sex: Male : 1990 Arrival Date: 12/04/2021 Time: 20:58 Bed 20 Private MD: Diagnosis: Chest pain, unspecified;Cannabis abuse Presentation: 12/04 21:11 Chief complaint: Patient states: he is having chest pain and left arm numbness x 1 hour bb pt was seen at [place] ED yesterday for chest pain symptoms but was not feeling left arm numbness at that time. Coronavirus screen: At this time, the client does not indicate any symptoms associated with coronavirus-19. Ebola Screen: No symptoms or risks identified at this time. Initial Sepsis Screen: Does the patient meet any 2 criteria? No. Patient's initial sepsis screen is negative. Does the patient have a suspected source of infection? No. Patient's initial sepsis screen is negative. Risk Assessment: Do you want to hurt yourself or someone else? Patient reports desire/thoughts of hurting themselves or someone else. Provider notified. Onset of symptoms was December 04, 2021. 21:11 Method Of Arrival: Ambulatory bb 21:11 Acuity: BREN 3 bb Triage Assessment: 22:20 General: Appears distressed, uncomfortable, Behavior is calm, cooperative. Pain: aa9 Complains of pain in chest Pain currently is 10 out of 10 on a pain scale. Historical: - Allergies: 21:13 No Known Allergies; bb - Home Meds: 21:13 citalopram oral [Active]; bb - PMHx: 21:13 mitral valve prolapse; depression; Anxiety; "enlarged heart"; bb - PSHx: 21:13 ear tubes; bb - Immunization history:: Client reports having NOT received the Covid vaccine. - Social history:: Smoking status: Patient reports the use of cigarette tobacco products, Patient uses alcohol, occasionally. street drugs, marijuana. Screenin:20 Abuse screen: Denies threats or abuse. Denies injuries from another. Nutritional aa9 screening: No deficits noted. Tuberculosis screening: No symptoms or risk factors identified. Fall Risk None identified. Assessment: 22:18 Pain: Complains of pain in chest Pain does not radiate. Pain began 1 hour ago. aa9 Cardiovascular: Reports chest pain, numbness of left arm Heart tones S1 S2 present Capillary refill < 3 seconds Patient's skin is warm and dry. Pulses are all present. Edema is absent. 23:03 General: "My chest pain is coming back bad" provider notified . as6 Vital Signs: 21:11 BP 142 / 98; Pulse 56; Resp 16 S; Temp 98.5(O); Pulse Ox 100% on R/A; Weight 67.59 kg bb (R); Height 5 ft. 4 in. (162.56 cm) (R); Pain 10/10; 22:19 BP 142 / 92; Pulse 52; Resp 16 S; Pulse Ox 97% on R/A; Pain 10/10; aa9 22:52 BP 133 / 98; Pulse 47; Resp 17 S; Pulse Ox 98% on R/A; as6 12/05 00:22 BP 129 / 95; Pulse 50; Resp 18 S; Pulse Ox 99% on R/A; as6 12/04 21:11 Body Mass Index 25.58 (67.59 kg, 162.56 cm) bb ED Course: 12/04 20:58 Patient arrived in ED. bp1 21:13 Triage completed. bb 21:13 Arm band placed on Patient placed in an exam room, on a stretcher, on traffic monitor specialist, bb on pulse oximetry. EKG completed in triage. Results shown to MD. Family accompanied patient. 21:15 Patient has correct armband on for positive identification. Placed in gown. Bed in low mh5 position. Call light in reach. Side rails up X 1. Adult w/ patient. traffic monitor specialist on. Pulse ox on. NIBP on. 21:15 EKG done, by ED staff, reviewed by Damien Grossman MD. mh5 21:24 Damien Grossman MD is Attending Physician. mh7 21:32 Whitley Mcduffie is Primary Nurse. tw5 21:51 XRAY Chest (1 view) In Process Unspecified. EDMS 22:17 Inserted saline lock: 20 gauge in right forearm, using aseptic technique. Blood aa9 collected. Patient maintains SpO2 saturation greater than 95% on room air. 23:05 SARS RAPID Sent. aa9 12/05 00:21 No provider procedures requiring assistance completed. IV discontinued, intact, as6 bleeding controlled, No redness/swelling at site. Pressure dressing applied. Administered Medications: 12/04 22:17 Drug: morphine 4 mg Route: IVP; Infused Over: 4 mins; Site: right forearm; aa9 22:18 Follow up: Response: No adverse reaction aa9 22:17 Drug: Zofran (Ondansetron) 4 mg Route: IVP; Site: right forearm; aa9 22:17 Follow up: Response: No adverse reaction aa9 23:10 Drug: Ketorolac 30 mg Route: IVP; Site: right forearm; aa9 12/05 00:22 Follow up: Response: No adverse reaction as6 Medication: 00:22 VIS not applicable for this client. as6 Outcome: 00:10 Discharge ordered by . mh7 00:21 Discharged to home ambulatory. as6 00:21 Condition: stable 00:21 Discharge instructions given to patient, Instructed on discharge instructions, follow up and referral plans. Demonstrated understanding of instructions, follow-up care. 00:23 Patient left the ED. as6 Signatures: Dispatcher [employer] EDMS Eulalia Davis RN RN bb Martinez, Maria 5 Sulma Santiago Maurice, MD MD 7 Whitley Mcduffie [facility] Arnol Riddle RN RN as6 Anita Guajardo RN RN aa9 Corrections: (The following items were deleted from the chart) 12/04 22:21 22:18 Pain: Complains of pain in chest Pain does not radiate. Pain began suddenly, aa9 aa9
--- NOTE | 2021-12-05 00:11 | EDPHYS ---
Physician Documentation [facility] Name: Ariel Hart Age: 31 yrs Sex: Male : 1990 Arrival Date: 12/04/2021 Time: 20:58 Bed 20 Private MD: ED Physician Damien Grossman HPI: 12/04 21:58 This 31 yrs old Male presents to ER via Ambulatory with complaints of Chest Pain > 30 mh7 y/o, Numbness Of Arm, - Left. 21:58 The patient or guardian reports chest pain that is located primarily in the substernal mh7 area. The pain radiates to the left arm. 21:58 Associated signs and symptoms: Pertinent positives: cough, Pertinent negatives: mh7 abdominal pain, diaphoresis, dizziness, headache, lower extremity pain, lower extremity swelling, lightheadedness, nausea, near syncope, palpitations, recent travel, shortness of breath, syncope, vomiting. 21:58 The chest pain is described as sharp. Duration: The patient or guardian reports a mh7 single episode, that is still ongoing, and unchanged. Modifying factors: The symptoms are alleviated by nothing. the symptoms are aggravated by movement, palpation of area. Severity of pain: At its worst the pain was moderate today, in the emergency department the pain has improved moderately. Historical: - Allergies: 21:13 No Known Allergies; bb - Home Meds: 21:13 citalopram oral [Active]; bb - PMHx: 21:13 mitral valve prolapse; depression; Anxiety; "enlarged heart"; bb - PSHx: 21:13 ear tubes; bb - Immunization history:: Client reports having NOT received the Covid vaccine. - Social history:: Smoking status: Patient reports the use of cigarette tobacco products, Patient uses alcohol, occasionally. street drugs, marijuana. ROS: 21:58 Constitutional: Negative for fever, chills, and weight loss, Eyes: Negative for injury, mh7 pain, redness, and discharge, ENT: Negative for injury, pain, and discharge, Neck: Negative for injury, pain, and swelling, Abdomen/GI: Negative for abdominal pain, nausea, vomiting, diarrhea, and constipation, Back: Negative for injury and pain, : Negative for injury, bleeding, discharge, and swelling, MS/Extremity: Negative for injury and deformity, Skin: Negative for injury, rash, and discoloration, Neuro: Negative for headache, weakness, numbness, tingling, and seizure, Psych: Negative for depression, anxiety, suicide ideation, homicidal ideation, and hallucinations, Allergy/Immunology: Negative for hives, rash, and allergies, Endocrine: Negative for neck swelling, polydipsia, polyuria, polyphagia, and marked weight changes, Hematologic/Lymphatic: Negative for swollen nodes, abnormal bleeding, and unusual bruising. Exam: 21:58 Constitutional: This is a well developed, well nourished patient who is awake, alert, mh7 and in no acute distress. Head/Face: Normocephalic, atraumatic. Eyes: Pupils equal round and reactive to light, extra-ocular motions intact. Lids and lashes normal. Conjunctiva and sclera are non-icteric and not injected. Cornea within normal limits. Periorbital areas with no swelling, redness, or edema. Neck: Trachea midline, no thyromegaly or masses palpated, and no cervical lymphadenopathy. Supple, full range of motion without nuchal rigidity, or vertebral point tenderness. No Meningismus. 21:58 Respiratory: Lungs have equal breath sounds bilaterally, clear to auscultation and percussion. No rales, rhonchi or wheezes noted. No increased work of breathing, no retractions or nasal flaring. Abdomen/GI: Soft, non-tender, with normal bowel sounds. No distension or tympany. No guarding or rebound. No evidence of tenderness throughout. Back: No spinal tenderness. No costovertebral tenderness. Full range of motion. Skin: Warm, dry with normal turgor. Normal color with no rashes, no lesions, and no evidence of cellulitis. MS/ Extremity: Pulses equal, no cyanosis. Neurovascular intact. Full, normal range of motion. Neuro: Awake and alert, GCS 15, oriented to person, place, time, and situation. Cranial nerves II-XII grossly intact. Motor strength 5/5 in all extremities. Sensory grossly intact. Cerebellar exam normal. Normal gait. Psych: Awake, alert, with orientation to person, place and time. Behavior, mood, and affect are within normal limits. 21:58 Chest/axilla: Inspection: normal, Palpation: tenderness, that is moderate, of the anterior aspect of left upper chest and mid-sternal area, that totally reproduces the patient's complaints, Axilla: are normal, Lymph nodes: lymphadenopathy is not appreciated. 21:58 Cardiovascular: Rate: bradycardic, Rhythm: regular, Pulses: no pulse deficits are appreciated, Heart sounds: normal, normal S1and S2, Edema: is not appreciated, JVD: is not appreciated. Vital Signs: 21:11 BP 142 / 98; Pulse 56; Resp 16 S; Temp 98.5(O); Pulse Ox 100% on R/A; Weight 67.59 kg bb (R); Height 5 ft. 4 in. (162.56 cm) (R); Pain 10/10; 22:19 BP 142 / 92; Pulse 52; Resp 16 S; Pulse Ox 97% on R/A; Pain 10/10; aa9 22:52 BP 133 / 98; Pulse 47; Resp 17 S; Pulse Ox 98% on R/A; as6 12/05 00:22 BP 129 / 95; Pulse 50; Resp 18 S; Pulse Ox 99% on R/A; 12/04 21:11 Body Mass Index 25.58 (67.59 kg, 162.56 cm) MDM: 00:08 Differential diagnosis: acute myocardial infarction, acute pericarditis, anxiety, mh7 coronary artery disease chest wall pain, costochondritis, esophagitis, gastritis, gastroesophageal reflux disease (GERD), peptic ulcer disease, pneumonia, pneumothorax, pulmonary embolus. HEART Score: History: Slightly Suspicious (0), ECG: Normal (0), Age: < or = 45 years (0), Risk Factors: No Risk Factors Known (0), Troponin: < or = 1 x Normal Limit (0), Total Score = 0. Data reviewed: vital signs, nurses notes, old medical records, lab test result(s), cardiac enzymes, CBC, electrolytes, urine drug screen, EKG, radiologic studies, plain films. Data interpreted: Pulse oximetry: on room air is 98 %. Interpretation: normal. Counseling: I had a detailed discussion with the patient and/or guardian regarding: the historical points, exam findings, and any diagnostic results supporting the discharge/admit diagnosis, the presence of at least one elevated blood pressure reading (>120/80) during this emergency department visit, lab results, radiology results, the need for outpatient follow up. Response to treatment: the patient's symptoms have resolved after treatment, the patient's blood pressure is in an acceptable range, mental status has returned to baseline, the patient no longer shows bradycardia, the patient is not short of breath, the patient is not tachycardic, the patient's pain is gone, the patient's temperature has normalized, the patient is now symptom free, patient is well hydrated. 00:10 Patient medically screened. [facility] 12/04 21:39 Order name: Basic Metabolic Panel; Complete Time: 23:03 [facility] 12/04 21:39 Order name: CBC with Diff; Complete Time: 22:28 [facility] 12/04 21:39 Order name: D-Dimer; Complete Time: 23:03 [facility] 12/04 21:39 Order name: LFT's; Complete Time: 23:03 [facility] 12/04 21:39 Order name: Magnesium; Complete Time: 23:03 [facility] 12/04 21:39 Order name: NT PRO-BNP; Complete Time: 23:03 [facility] 12/04 21:39 Order name: PT-INR; Complete Time: 23:03 [facility] 12/04 21:39 Order name: Troponin HS; Complete Time: 23:03 [facility] 12/04 21:39 Order name: XRAY Chest (1 view); Complete Time: 22:28 [facility] 12/04 21:39 Order name: UDS; Complete Time: 00:03 [facility] 12/04 21:39 Order name: CK; Complete Time: 23:03 [facility] 12/04 22:02 Order name: SARS RAPID; Complete Time: 23:51 7 12/04 23:39 Order name: Urine Dipstick-Ancillary; Complete Time: 23:51 EDMS 12/04 21:39 Order name: EKG; Complete Time: 21:40 [facility] 12/04 21:39 Order name: Cardiac monitoring; Complete Time: 21:48 [facility] 12/04 21:39 Order name: EKG - Nurse/Tech; Complete Time: 22:00 [facility] 12/04 21:39 Order name: IV Saline Lock; Complete Time: 22:18 [facility] 12/04 21:39 Order name: Labs collected and sent; Complete Time: 22:18 [facility] 12/04 21:39 Order name: O2 Per Protocol; Complete Time: 21:48 [facility] 12/04 21:39 Order name: O2 Sat Monitoring; Complete Time: 21:48 [facility] 12/04 21:39 Order name: Urine Dipstick-Ancillary (obtain specimen); Complete Time: 23:31 [facility] Administered Medications: 12/04 22:17 Drug: morphine 4 mg Route: IVP; Infused Over: 4 mins; Site: right forearm; aa9 22:18 Follow up: Response: No adverse reaction aa9 22:17 Drug: Zofran (Ondansetron) 4 mg Route: IVP; Site: right forearm; aa9 22:17 Follow up: Response: No adverse reaction aa9 23:10 Drug: Ketorolac 30 mg Route: IVP; Site: right forearm; aa9 12/05 00:22 Follow up: Response: No adverse reaction as6 Disposition Summary: 12/05/21 00:10 Discharge Ordered Location: Home [facility] Problem: new [facility] Symptoms: have improved [facility] Condition: Stable [facility] Diagnosis - Chest pain, unspecified [facility] - Cannabis abuse [facility] Followup: [facility] - With: Private Physician - When: 1 - 2 days - Reason: Worsening of condition, Recheck today's complaints, Continuance of care, Re-evaluation by your physician Discharge Instructions: - Discharge Summary Sheet [facility] - Cannabis Use Disorder 7 - Chest Wall Pain, [id number] 7 - Nonspecific Chest Pain, Adult, [id number] [facility] Forms: - Medication Reconciliation Form [facility] - Thank You Letter [facility] - Antibiotic Education [facility] - Prescription Opioid Use [facility] Signatures: Dispatcher [employer] Eulalia Powers RN RN bb Holmes, Maurice, MD MD [facility] Anita Guajardo RN RN aa9 Arnol Riddle RN as6
[2021-12-05 01:14] VITALS: TEMP 98.5
[2021-12-05 01:21] VITALS: BP 129/95; O2SAT 99
--- NOTE | 2021-12-05 13:44 | EKG ---
Test Date: 2021-12-04 Test Time: 21:11:11 [employer]: JIM MEASUREMENT RESULTS: Intervals: Rate: 51 AL: 136 QRSD: 80 QT: 404 QTc: 372 [place]: P: 46 AL: 136 QRS: 46 T: 37 INTERPRETIVE STATEMENTS: Sinus bradycardia Otherwise normal ECG Compared to ECG 11/10/2021 22:16:36 Sinus rhythm no longer present T-wave abnormality no longer present Electronically Signed On 12-05-21 13:43:18 CDT by Marquez Hernandez
== END 2021-12-05 00:23 | disposition home or self-care (01) ==
LOC: ER 20:58
DX: R07.89 Other chest pain (principal); F12.10 Cannabis abuse, uncomplicated; F32.A Depression, unspecified; Z20.822 Contact with and (suspected) exposure to COVID-19
CPT/HCPCS: 93005; 85025; 80048; 36415; 83735; 82550; 85610; 85379; 80076; 81003; 84484; 83880; 80307; 71045; 96375; 96374; 99285; 87811; J2405